=== PATIENT | male | born 1955 | race Two or more races ===

== ENCOUNTER 2021-09-27 14:53 | Emergency (ER) | payer MEDICARE, SELFPAY ==
--- NOTE | ~2021-09-27 | CT_ITS ---
EXAMINATION: CT ABDOMEN AND PELVIS WITHOUT CONTRAST CLINICAL INFORMATION: Abdominal pain COMPARISON: None TECHNIQUE: Multidetector volumetric imaging was performed from the superior aspect of the liver through the pubic symphysis. No oral or intravenous contrast. Sagittal and coronal reformatted images were obtained on the technologist's workstation. This CT examination was performed using dose optimization techniques as appropriate, variously including the following: *Automated exposure control *Adjustment of mA and/or kV according to patient size (this includes techniques or standardized protocols for targeted exams where dose is matched to indication/reason for exam; i.e. extremities or head) *Use of iterative reconstruction technique DLP: 957 mGy-cm FINDINGS: LUNG BASES: Bibasilar linear scarring versus disc atelectasis. No airspace consolidation or groundglass opacity or effusion. LIVER, GALLBLADDER, AND BILIARY TREE: The liver is normal in size, shape, and attenuation. No focal hepatic lesion or biliary ductal dilatation is present. The gallbladder has trace dependent high attenuation within the lumen likely gravel-like calculi. No gallbladder wall thickening or pericholecystic fluid. Common duct unremarkable. PANCREAS: Unremarkable. SPLEEN: Unremarkable. ADRENAL GLANDS: Unremarkable. KIDNEYS AND URETERS: No hydronephrosis, hydroureter, or perinephric stranding. No urinary tract calculi. Punctate intrarenal calcifications on left under 3 mm, likely renal vasculature. Right kidney has a 1.1 cm exophytic cyst interpolar region, water attenuation. No additional imaging required. Left kidney has a 1.7 cm exophytic upper pole cyst water attenuation and 1.2 cm cyst anterior lower pole, water attenuation. No additional imaging required. There is also a nonspecific high attenuation lesion lateral interpolar region 1.8 cm, 43HU. This may be further assessed nonemergent line with MR without and with gadolinium contrast. BLADDER: Unremarkable. GASTROINTESTINAL TRACT: There are focal inflammatory changes in mid splenic flexure in area of diverticula with mild induration and stranding in the mesentery, consistent with diverticulitis. No free air or proximal obstruction. No paracolic fluid collection or ascites. There is nonspecific circumferential thickening of the distal thoracic esophagus and esophagogastric junction. This could be related to esophagitis. Occult esophageal cancer may have similar appearance. This may be best correlated with direct visualization/endoscopy. ABDOMINAL WALL: Fat-containing umbilical hernia measuring approximately 5 x 5 x 4 cm. Small fat-containing bilateral inguinal hernias. LYMPH NODES: No bulky lymphadenopathy. VASCULAR: Unremarkable. PELVIC VISCERA: Plump seminal vesicles. Pelvic side wall soft tissues unremarkable. OSSEOUS STRUCTURES: Unremarkable. Results and follow up recommendations discussed with Dr. Shabazz at [address]/CT abdomen pelvis wo con IMPRESSION: 1. Diverticulitis splenic flexure. No proximal obstruction, ascites, or fluid collection. 2. Nonspecific thickening distal thoracic esophagus and esophagogastric junction. Differential considerations include esophagitis as well as occult esophageal cancer. This would be best correlated with direct visualization/endoscopy. 3. High attenuation lesion left kidney just under 2 cm (solid mass versus hemorrhagic cyst). Nonemergent MR abdomen without and with gadolinium contrast suggested for follow-up. 4. Probable gravel-like calculi dependent gallbladder. No gallbladder wall thickening or ductal dilatation or pericholecystic inflammatory changes.
[2021-09-27 15:01] VITALS: RESP 19; TEMP 36.8; BMI 39.5
--- NOTE | 2021-09-27 15:08 | ECG_ITS ---
Test Reason : ABNOMINAL PAIN Blood Pressure : / mmHG Vent. Rate : 076 BPM Atrial Rate : 076 BPM P-R Int : 132 ms QRS Dur : 104 ms QT Int : 398 ms P-R-T Axes : 049 004 040 degrees QTc Int : 447 ms Normal sinus rhythm Cannot rule out Inferior infarct , age undetermined Abnormal ECG No previous ECGs available Referred By: Generic ED Physician Electronically Signed By:Shankar Lopes
[2021-09-27 16:00] VITALS: BP 182/71; PULSE 98; RESP 16; O2SAT 100
[2021-09-27 16:29] LABS: MANUAL DIFF FLAG NO
[2021-09-27 16:32] LABS: Basophils Percent Auto 0.2 % (0-2); Eosinophils Absolute Auto 0.1 X10*3/uL (0.0-0.4); Eosinophils Percent Auto 0.4 % (0-4); Hematocrit 26.1 % (42.0-52.0); Hemoglobin 8.5 g/dl (14.0-18.0); Imm Gran Abs Auto 0.07 X10*3/uL (0.00-0.03); Imm Gran Pct Auto 0.5 % (0.0-0.4); Lymphocytes Absolute Auto 0.8 X10*3/uL (1.2-4.9); Lymphocytes Percent Auto 6.1 % (20-40); Mean Corpuscular HGB Conc 32.6 g/dl (31.0-36.0); Mean Corpuscular Hemoglobin 33.5 pg (27.0-33.0); Mean Corpuscular Volume 102.8 fL (80.0-98.0); Mean Platelet Volume 11.5 fL (9.4-12.4); Monocytes Percent Auto 7.4 % (2-11); Neutrophils Absolute Auto 11.1 x10*3/uL (2.0-8.3); Neutrophils Percent Auto 85.4 % (45-73); Platelet Count 176 X10*3/uL (160-400); Red Blood Count 2.54 X10*6/uL (4.60-5.80); Red Cell Distribution Width 13.8 % (11.0-16.0)
--- NOTE | 2021-09-27 16:35 | ED_ITS ---
HPI - Abdominal Pain General Chief Complaint: Abdominal Pain Stated Complaint: cat scan pcp referral Time Seen by Provider: 09/27/21 16:28 Source: patient Mode of arrival: ambulatory Limitations: no limitations History of Present Illness HPI narrative: Patient having left lower abdominal pain for last 2 days associa zelda with nausea no vomiting no fever no chills no blood in the stool no diarrhea no fever no chills no cough never had similar pain in the past been told that he had diverticulosis also patient has chronic renal disease planning for dialysis follow with chiropractic physician Related Data Previous Rx's Medication Instructions Recorded amoxicillin 875 mg-potassium 1 tab PO BID #20 tab 09/27/21 clavulanate 125 mg tablet (Augmentin) Allergies Allergy/AdvReac Type Severity Reaction Status Date / Time ibuprofen [From Motrin] AdvReac Itching Verified 09/27/21 15:06 Review of Systems Review of Systems Yes all other systems are reviewed and are negative Physical Exam Vital Signs: Vital Signs: Last Vital Signs Temp 98.5 F 09/27/21 17:57 Pulse 76 09/27/21 17:57 Resp 14 09/27/21 17:57 BP 149/74 H 09/27/21 17:57 Pulse Ox 100 09/27/21 17:57 BMI result Body Mass Index 39.5 Appearance: Alert. Oriented X3. No acute distress. Eyes: Pallor+ ENT: Pharynx normal. Oral Mucosa moist Neck: Normal inspection. Neck supple. CVS: Normal heart rate and rhythm. Pulses normal. Respiratory: No respiratory distress. Equal air entry bilateral, Abdomen: Soft and dependence of left lower quadrant no rebound tenderness or guarding, Bowel sounds are present, no mass palpable, no CVA tenderness Skin: Skin warm and dry. Normal skin color. Normal skin turgor. Extremities: No lower extremity edema. No calf tenderness Neuro: Oriented X 3. MDM - Abdominal Pain MDM Narrative Medical decision making narrative: Patient with uncomplicated diverticulitis with known CKD been followed by chiropractic physician plan for dialysis on was given a dose of Zosyn in the ER will discharge patient home on Augmentin Lab Data Attestation: I reviewed the patient's lab results. Result diagrams: 09/27/21 16:25 09/27/21 16:25 Labs: Lab Results 09/27/21 09/27/21 09/27/21 Range/Units 16:25 16:25 16:25 WBC 13.0 H (4.8-10.8) X10*3/uL RBC 2.54 L (4.60-5.80) X10*6/uL Hgb 8.5 L (14.0-18.0) g/dl Hct 26.1 L (42.0-52.0) % MCV 102.8 H (80.0-98.0) fL MCH 33.5 H (27.0-33.0) pg MCHC 32.6 (31.0-36.0) g/dl RDW 13.8 (11.0-16.0) % Plt Count 176 (160-400) X10*3/uL MPV 11.5 (9.4-12.4) fL Immature Gran % (Auto) 0.5 H (0.0-0.4) % Neut % (Auto) 85.4 H (45-73) % Lymph % (Auto) 6.1 L (20-40) % Tyler % (Auto) 7.4 (2-11) % Eos % (Auto) 0.4 (0-4) % Baso % (Auto) 0.2 (0-2) % Lymph # (Auto) 0.8 L (1.2-4.9) X10*3/uL Tyler # (Auto) 1.0 (0.1-1.2) X10*3/uL Eos # (Auto) 0.1 (0.0-0.4) X10*3/uL Baso # (Auto) 0.0 (0.0-0.2) X10*3/uL Abs Immat Gran (auto) 0.07 H (0.00-0.03) X10*3/uL Absolute Neuts (auto) 11.1 H (2.0-8.3) x10*3/uL Absolute Nucleated RBC 0.000 (0.0-0.012) X10*3/uL Nucleated RBC % (auto) 0.0 (0.0-0.2) /100WBC Sodium 141 (135-145) mmol/L Potassium 4.7 (3.3-5.1) mmol/L Chloride 109 H (96-108) mmol/L Carbon Dioxide 18 L (22-29) mmol/L Anion Gap 19 (12-20) BUN 76 H (9-16) mg/dL Creatinine 7.61 H* (0.5-1.4) mg/dL Estim Creat Clear Calc 12.4 Estimated GFR 7 Random Glucose 62 (60-115) mg/dL Calcium 8.8 (8.4-10.2) mg/dL COVID-19 (MARYJANE) Negative (Negative) COVID-19 Clin Com See Note Discharge Plan Discharge Clinical Impression: Diverticulitis Patient Disposition: Home, Self-Care Instructions: Diverticulitis (ED) Additional Instructions: Drink plenty of fluids Clear liquids advance as tolerated Antibiotic as prescribed Report to the ER/PCP if increased abdominal pain fever/vomiting/blood in stool Prescriptions: New amoxicillin-pot clavulanate [Augmentin] 875-125 mg tablet 1 tab PO BID Qty: 20 RF: 0 PMFSH Past Medical History Medical History Chronic kidney disease (CKD) Diabetes Hypertension Sleep apnea Social History Social History Advance Directives: Yes Advance Directives Information Provided: No Advance Directives on File: No
[2021-09-27 16:46] LABS: Anion Gap 19 (12-20); Blood Urea Nitrogen 76 mg/dL (9-16); Calcium 8.8 mg/dL (8.4-10.2); Carbon Dioxide 18 mmol/L (22-29); Chloride 109 mmol/L (96-108); Creatinine Clr Calc Pharmacy 12.4; Estimated Glomerular Filt Rate 7; Glucose Random 62 mg/dL (60-115); Potassium 4.7 mmol/L (3.3-5.1); Sodium 141 mmol/L (135-145)
[2021-09-27 16:48] LABS: COVID-19 Test Negative (Negative)
[2021-09-27] MEDS: Piperacillin Sodium/Tazobactam 2.25 GM in 0.9 % Sodium Chloride 50 ML IV (17:20)
[2021-09-27] MEDS: 0.9 % Sodium Chloride 1,000 ML 999 ML IV (17:20)
[2021-09-27 17:57] VITALS: BP 149/74; PULSE 76; RESP 14; TEMP 36.9; O2SAT 100
== END 2021-09-27 18:55 | disposition home or self-care (01) ==
PROVIDERS: Emergency Provider Internal Medicine; PCP Internal Medicine
DX: K57.92 Diverticulitis of intestine, part unspecified, without perforation or abscess without bleeding (principal); R10.32 Left lower quadrant pain; Z20.822 Contact with and (suspected) exposure to COVID-19; R11.0 Nausea; E11.22 Type 2 diabetes mellitus with diabetic chronic kidney disease; I12.9 Hypertensive chronic kidney disease with stage 1 through stage 4 chronic kidney disease, or unspecified chronic kidney disease; N18.9 Chronic kidney disease, unspecified
CPT/HCPCS: 74176; 80048; 85025; 87635; 93005; 96361; 96374; 99284; J2543

== ENCOUNTER 2022-06-23 05:42 | Day surgery (SDC) | payer MEDICARE, SELFPAY ==
[2022-06-16 12:07] VITALS: BP 117/66; PULSE 77; RESP 20; O2SAT 97; BMI 34.2
--- NOTE | 2022-06-16 12:20 | HO.ANESPROP2 ---
Documented by User: Keri Jason NP 06/16/22 13:06 HPI - Anesthesia Eval Consult details Narrative: 67yo M for Left AV Fistula Creation ESRD with HD on MWF Cardiology visit 04/2022 - new rx for isosorbide for med management of CAD, otherwise stable [facility] Past Medical History Medical History Anemia Arthritis CAD (coronary artery disease) Carotid stenosis Cervical herniated disc Chronic kidney disease (CKD) CVA (cerebral vascular accident) Depression Diabetes Difficulty swallowing Elevated cholesterol Gout Hemodialysis patient Hypertension Myocardial infarction Peripheral neuropathy Renal failure Sleep apnea Thoracic aortic aneurysm Venous insufficiency Family History Family history of problems with anesthesia: No Surgical History Surgical History H/O colonoscopy History of esophagogastroduodenoscopy (EGD) Hx of coronary angioplasty History of Problems with Anesthesia: No Social History Social History Are you a primary home care aide to a significant other at home: No Do you presently have visiting nurse or other home services: No Patient Tobacco Use Status: Former Tobacco user Quit Date: Tobacco use type: Cigarette Use of substances other than those prescribed or required for medical reasons: No Have you been hit, kicked, punched, or otherwise hurt by someone within the past year? If so, by whom?: No Are you DNR?: No Advance Directives: No Advance Directives Information Provided: Yes Advance Directives on File: No Recently lost weight without trying: Yes How much weight loss: 34pounds or more Eating poorly because of decreased appetite: No Nutrition screen score: 6 Nutrition Risks: No Nutritional Risk and Difficulty swallowing Narrative Narrative: No recent illness No chest pain. SOB chronic and at baseline Meds Allergies Allergy/AdvReac Type Severity Reaction Status Date / Time ibuprofen [From Motrin] Allergy Intermediate Itching Verified 06/16/22 12:02 Home Medications Medication Instructions Recorded Confirmed Last Taken Type allopurinol 100 mg tablet 2 tab PO DAILY 06/15/22 06/15/22 Unknown History aspirin 81 mg tablet,delayed 81 mg PO DAILY 06/15/22 06/15/22 06/20/22 History release atorvastatin 80 mg tablet 1 tab PO DAILY 06/15/22 06/15/22 Unknown History carvedilol 12.5 mg tablet 12.5 mg PO BID 06/15/22 06/15/22 06/23/22 History cholecalciferol (vitamin D3) 50 50 mcg PO DAILY 06/15/22 06/15/22 Unknown History mcg (2,000 unit) capsule (Vitamin D3) cyanocobalamin (vitamin B-12) 1,000 mcg PO DAILY 06/15/22 06/15/22 Unknown History 1,000 mcg tablet (Vitamin B-12) fluticasone propionate 50 1 spray intranasal DAILY 06/15/22 06/15/22 Unknown History mcg/actuation nasal spray,suspension furosemide 80 mg tablet 80 mg PO DAILY 06/15/22 06/15/22 Unknown History gabapentin 100 mg capsule 1 cap PO DAILY PRN nerve pain 06/15/22 06/15/22 Unknown History hydralazine 25 mg tablet 25 mg PO TID 06/15/22 06/15/22 Unknown History isosorbide mononitrate 30 mg 30 mg PO DAILY 06/15/22 06/15/22 Unknown History tablet,extended release 24 hr losartan 50 mg tablet 50 mg PO DAILY 06/15/22 06/15/22 Unknown History meclizine 25 mg tablet 1 tab PO BID PRN Vertigo 06/15/22 06/15/22 Unknown History melatonin 10 mg tablet 10 mg PO BEDTIME 06/15/22 06/15/22 Unknown History omega-3 fatty acids-fish oil 684 1 cap PO DAILY 06/15/22 06/15/22 06/22/22 History mg-1,200 mg capsule,delayed release omeprazole 20 mg tablet,delayed 20 mg PO BID 06/15/22 06/16/22 06/23/22 History release folic acid 1 mg tablet 1 tab PO DAILY 06/16/22 06/16/22 Unknown History vitamin B complex and vitamin C 1 cap PO DAILY 06/16/22 06/16/22 Unknown History no.20-folic acid 1 mg capsule (Renal Caps) Exam Exam Date and Time: June 16, 2022 1220 Height,Weight and Vital Signs: Height 5 ft 9 in Weight 105 kg Last Vital Signs Pulse 77 06/16/22 12:07 Resp 20 06/16/22 12:07 BP 117/66 06/16/22 12:07 Pulse Ox 97 06/16/22 12:07 O2 Del Method 10/06/22 12:07 Pertinent Lab Results Pertinent Lab Results: Labs at outside facility 05/18/22 Lytes WNL CBC with low H&H Will repeat DOS Narrative Narrative: EKG 03/2022 NSR @ 82 Possible LAE Inferior infarct (old) ECHO 02/2022 LV size is at the upper normal limit. Mild concentric LVH. Inferior wall hypokinetic. Nml LV systolic function. LV EF 55-60%. Grade 2 abnormal LV diastolic function. Normal RV size and function. Severely dilated LA Mild aortic stenosis. Trace aortic insufficiency PASP mildly elevated Sinuses of Valsava (4.2cm), ascending (4.3cm) dilation Nuc Stress 04/2022 transmural infarct in basal to mid inferior wall and basal inferior septum with mild hermelindo-infarct ischemia, nml LV size and systolic function with an EF of 60%, inferior wall is hypokinetic Airway Mallampati Class: II TM Dist: >3cm Neck ROM: Full Denture: Upper Partial: Lower Loose/Missing/Broken Teeth: Yes Heart: RRR +Murmur (mid by ECHO in February 2022) Lungs: CTAB Assessment and Plan Assessment Anesthesia Assessment: Chart Reviewed Final Anesthetic Review Family History of Problems with Anesthesia: No History of Problems with Anesthesia: No Documented by User: Payton Pizano MD 06/23/22 08:35 [facility] Past Medical History Medical History Anemia Arthritis CAD (coronary artery disease) Carotid stenosis Cervical herniated disc Chronic kidney disease (CKD) CVA (cerebral vascular accident) Depression Diabetes Difficulty swallowing Elevated cholesterol Gout Hemodialysis patient Hypertension Myocardial infarction Peripheral neuropathy Renal failure Sleep apnea Thoracic aortic aneurysm Venous insufficiency Surgical History Surgical History H/O colonoscopy History of esophagogastroduodenoscopy (EGD) Hx of coronary angioplasty Social History Social History Are you a primary home care aide to a significant other at home: No Do you presently have visiting nurse or other home services: No Patient Tobacco Use Status: Former Tobacco user Quit Date: Tobacco use type: Cigarette Use of substances other than those prescribed or required for medical reasons: No Have you been hit, kicked, punched, or otherwise hurt by someone within the past year? If so, by whom?: No Are you DNR?: No Advance Directives: No Advance Directives Information Provided: Yes Advance Directives on File: No Recently lost weight without trying: Yes How much weight loss: 34pounds or more Eating poorly because of decreased appetite: No Nutrition screen score: 6 Nutrition Risks: No Nutritional Risk and Difficulty swallowing Meds Allergies Allergy/AdvReac Type Severity Reaction Status Date / Time ibuprofen [From Motrin] Allergy Intermediate Itching Verified 06/16/22 12:02 Home Medications Medication Instructions Recorded Confirmed Last Taken Type allopurinol 100 mg tablet 2 tab PO DAILY 06/15/22 06/15/22 Unknown History aspirin 81 mg tablet,delayed 81 mg PO DAILY 06/15/22 06/15/22 06/20/22 History release atorvastatin 80 mg tablet 1 tab PO DAILY 06/15/22 06/15/22 Unknown History carvedilol 12.5 mg tablet 12.5 mg PO BID 06/15/22 06/15/22 06/23/22 History cholecalciferol (vitamin D3) 50 50 mcg PO DAILY 06/15/22 06/15/22 Unknown History mcg (2,000 unit) capsule (Vitamin D3) cyanocobalamin (vitamin B-12) 1,000 mcg PO DAILY 06/15/22 06/15/22 Unknown History 1,000 mcg tablet (Vitamin B-12) fluticasone propionate 50 1 spray intranasal DAILY 06/15/22 06/15/22 Unknown History mcg/actuation nasal spray,suspension furosemide 80 mg tablet 80 mg PO DAILY 06/15/22 06/15/22 Unknown History gabapentin 100 mg capsule 1 cap PO DAILY PRN nerve pain 06/15/22 06/15/22 Unknown History hydralazine 25 mg tablet 25 mg PO TID 06/15/22 06/15/22 Unknown History isosorbide mononitrate 30 mg 30 mg PO DAILY 06/15/22 06/15/22 Unknown History tablet,extended release 24 hr losartan 50 mg tablet 50 mg PO DAILY 06/15/22 06/15/22 Unknown History meclizine 25 mg tablet 1 tab PO BID PRN Vertigo 06/15/22 06/15/22 Unknown History melatonin 10 mg tablet 10 mg PO BEDTIME 06/15/22 06/15/22 Unknown History omega-3 fatty acids-fish oil 684 1 cap PO DAILY 06/15/22 06/15/22 06/22/22 History mg-1,200 mg capsule,delayed release omeprazole 20 mg tablet,delayed 20 mg PO BID 06/15/22 06/16/22 06/23/22 History release folic acid 1 mg tablet 1 tab PO DAILY 06/16/22 06/16/22 Unknown History vitamin B complex and vitamin C 1 cap PO DAILY 06/16/22 06/16/22 Unknown History no.20-folic acid 1 mg capsule (Renal Caps) Exam Airway Mallampati Class: III (Johnson) Assessment and Plan Assessment Anesthesia Assessment: Anesthesia Plan Discussed Final Anesthetic Review NPO: Yes ASA Class: IV Final Preanesthetic Review: Meds/Allgs Chart Reviewed, Consent Obtained/Reviewed and Anes Risks/Benef Reviewed Patient Risk: High Procedure Risk: Low Anesthetic Plan Anesthetic Plan: MAC: Disposition: Standard PACU
[2022-06-23 06:28] LABS: Glucose, Whole Blood 98 mg/dL (60-115)
[2022-06-23 06:29] VITALS: BP 148/77; PULSE 70; RESP 18; TEMP 36.4; O2SAT 97
[2022-06-23 06:29] LABS: Hematocrit 22.8 % (42.0-52.0); Hemoglobin 7.4 g/dl (14.0-18.0); Mean Corpuscular HGB Conc 32.5 g/dl (31.0-36.0); Mean Corpuscular Hemoglobin 33.2 pg (27.0-33.0); Mean Corpuscular Volume 102.2 fL (80.0-98.0); Mean Platelet Volume 9.6 fL (9.4-12.4); Platelet Count 247 X10*3/uL (160-400); Red Blood Count 2.23 X10*6/uL (4.60-5.80); Red Cell Distribution Width 14.2 % (11.0-16.0); White Blood Count 7.5 X10*3/uL (4.8-10.8)
[2022-06-23] MEDS: 0.9 % Sodium Chloride 1,000 ML 100 ML IVCONT (06:36)
[2022-06-23 06:44] LABS: Anion Gap 19 (12-20); Carbon Dioxide 25 mmol/L (22-29); Chloride 97 mmol/L (96-108); Potassium 4.4 mmol/L (3.3-5.1); Sodium 137 mmol/L (135-145)
[2022-06-23 09:50] VITALS: BP 133/72; PULSE 63; RESP 20; TEMP 37.1; O2SAT 99
--- NOTE | 2022-06-23 09:50 | P.OP_ITS ---
Operative Note Operative Note Date of Service: 06/23/22 Narrative: Pre-op Dx: ESRD Post-op Dx: ESRD Operation: Left arm radial artery to antecubital vein AV fistula Surgeon: Grace Yao MD Anesthesia: MAC, local Procedure: The patient was placed on the OR table in a supine position. Lower extremity compression devices were placed. The anesthesiologist administered the pre- operative antibiotic. An US of the veins was performed on the left arm. After successful induction of MAC anesthesia, the left arm was prepped and draped in a sterile fashion. A surgical timeout took place. Local anesthetic was used. An incision was made below the crease of the elbow on the forearm. The Bovie electrocautery was used to dissect through the subcutaneous tissue. The antecubital vein, cephalic vein and basilic vein were isolated and skeletonized. Small branches were ligated and divided with 4-0 silk ties. The cephalic vein and the basilic vein were distended using hep-saline and dilators. The brachial artery bifurcated above the elbow. The radial artery and the ulnar artery were identified, dissected and skeletonized. There was no intimal calcification of the radial artery but there was a fair amount on the ulnar artery. Therefore I chose the radial artery for the fistula creation. Small branches were ligated and divided using 4-0 silk ties. Proximal and distal control was achieved. An arteriotomy was made and the antecubital vein was directly sewn to the radial artery using a 6-0 Prolene suture in a running fashion. The clamps were released and a soft thrill was noted. Hemostasis was maintained. The incision was closed in layers. Surgical glue was applied. The hand was well perfused. The patient tolerated the procedure well. All instrument, sponge and needle counts were correct at the end of the case. Findings: high bifurcation of the brachial artery, above the elbow. The radial artery had no calcification.
[2022-06-23 09:56] LABS: Glucose, Whole Blood 79 mg/dL (60-115)
[2022-06-23 10:05] VITALS: BP 144/80; PULSE 51; RESP 18; O2SAT 96
[2022-06-23] MEDS: Acetaminophen 325 MG TABLET 650 MG PO (10:19)
[2022-06-23 10:25] VITALS: BP 138/85; PULSE 59; RESP 18; TEMP 36.5; O2SAT 96
== END 2022-06-23 11:00 | disposition home or self-care (01) ==
PROVIDERS: Nurse Practitioner; PCP Internal Medicine; Visit Provider Transplant Surgery
PROC: (CPT 36821; principal; 2022-06-23 07:30)
DX: E11.22 Type 2 diabetes mellitus with diabetic chronic kidney disease (principal); I12.0 Hypertensive chronic kidney disease with stage 5 chronic kidney disease or end stage renal disease; N18.6 End stage renal disease; Z99.2 Dependence on renal dialysis; I25.10 Atherosclerotic heart disease of native coronary artery without angina pectoris; Z98.61 Coronary angioplasty status; Z79.51 Long term (current) use of inhaled steroids; Z79.82 Long term (current) use of aspirin; Z79.84 Long term (current) use of oral hypoglycemic drugs; Z88.8 Allergy status to other drugs, medicaments and biological substances; Z87.891 Personal history of nicotine dependence
CPT/HCPCS: 36821; 36415; 80051; 82947; 85027; J0690; J2250; J3010

== ENCOUNTER 2024-01-14 01:48 | Inpatient (IN) | payer MEDICARE, SELFPAY ==
[2024-01-14] VITALS (12 sets, daily range): BP systolic 124–190; BP diastolic 70–99; PULSE 83–138; RESP 20–45; TEMP 36.4–37.1; O2SAT 83–98; BMI 40.9
--- NOTE | 2024-01-14 | ECG_ITS ---
Test Reason : REPECT Blood Pressure : / mmHG Vent. Rate : 099 BPM Atrial Rate : 099 BPM P-R Int : 194 ms QRS Dur : 108 ms QT Int : 376 ms P-R-T Axes : 051 -11 068 degrees QTc Int : 482 ms Normal sinus rhythm Inferior infarct , age undetermined Abnormal ECG When compared with ECG of 14-JAN-2024 01:55, slower ventricular rate ST less depressed in Lateral leads T wave inversion no longer evident in Lateral leads Referred By: Keon Rubin Electronically Signed By:AUDRA JUAREZ
--- NOTE | ~2024-01-14 | XR_ITS ---
EXAMINATION: XR CHEST CLINICAL INFORMATION: CHF COMPARISON: None available. TECHNIQUE: Frontal view of the chest was obtained. FINDINGS: Left IJ central line tip in the region of the mid SVC. Lung volumes are symmetric. There is diffuse prominence of the interstitium suspicious for interstitial edema. Small pleural effusions are present with adjacent hazy bibasilar opacities which may represent atelectasis. No evidence of pneumothorax. The cardiomediastinal contour is unremarkable. No acute osseous findings are seen. XR/XR chest 1V IMPRESSION: Diffuse interstitial prominence suspicious for interstitial edema. Small pleural effusions with adjacent bibasilar opacities which may represent atelectasis.
--- NOTE | 2024-01-14 01:55 | ECG_ITS ---
Test Reason : SOB Blood Pressure : / mmHG Vent. Rate : 143 BPM Atrial Rate : 143 BPM P-R Int : 144 ms QRS Dur : 108 ms QT Int : 278 ms P-R-T Axes : 044 -16 114 degrees QTc Int : 429 ms Sinus tachycardia Possible Left atrial enlargement Incomplete left bundle branch block Nonspecific ST and T wave abnormality Abnormal ECG When compared with ECG of 27-SEP-2021 16:13, Vent. rate has increased BY 67 BPM Referred By: Grupo Caba Electronically Signed By:AUDRA JUAREZ
[2024-01-14] MEDS: Furosemide 100 MG/10 ML VIAL IVPUSH (02:01)
[2024-01-14] MEDS: Nitroglycerin 2 % Oint 1 GM Packet 0.5 INCH TRANSDERMA (02:02)
[2024-01-14 02:14] LABS: MANUAL DIFF FLAG NO
[2024-01-14 02:15] LABS: Basophils Absolute Auto 0.1 X10*3/uL (0.0-0.2); Basophils Percent Auto 0.4 % (0-2); Eosinophils Absolute Auto 0.2 X10*3/uL (0.0-0.4); Eosinophils Percent Auto 0.7 % (0-4); Hematocrit 29.5 % (42.0-52.0); Hemoglobin 9.6 g/dl (14.0-18.0); Imm Gran Abs Auto 0.38 X10*3/uL (0.00-0.03); Imm Gran Pct Auto 1.7 % (0.0-0.4); Lymphocytes Absolute Auto 2.4 X10*3/uL (1.2-4.9); Lymphocytes Percent Auto 10.7 % (20-40); Mean Corpuscular HGB Conc 32.5 g/dl (31.0-36.0); Mean Corpuscular Hemoglobin 34.9 pg (27.0-33.0); Mean Corpuscular Volume 107.3 fL (80.0-98.0); Monocytes Absolute Auto 1.4 X10*3/uL (0.1-1.2); Neutrophils Absolute Auto 18.2 x10*3/uL (2.0-8.3); Neutrophils Percent Auto 80.5 % (45-73); Platelet Count 331 X10*3/uL (160-400); Red Blood Count 2.75 X10*6/uL (4.60-5.80); Red Cell Distribution Width 14.9 % (11.0-16.0); White Blood Count 22.6 X10*3/uL (4.8-10.8)
[2024-01-14 02:20] LABS: Prothrombin Time 12.6 SEC (11.1-13.3)
--- NOTE | 2024-01-14 02:22 | PC.NURSE ---
pt placed on bipap. settings are as follows 18/8 and 35%. RR33. SPO2 95%.
[2024-01-14 02:23] LABS: Partial Thromboplastin Time 25.3 SEC (26.0-36.8)
[2024-01-14 02:23] LABS: VBG Base Excess -0.2 mmol/L; VBG HCO3 24 mmol/L (22-26); VBG pCO2 40 mmHg; VBG pH 7.39 (7.32-7.43); VBG pO2 168 mmHg
[2024-01-14 02:33] LABS: Venous Blood Gas Refer to POC result
[2024-01-14 02:39] LABS: Alanine Aminotransferase 14 U/L (0-40); Alkaline Phosphatase 70 U/L (39-117); Anion Gap 25 (12-20); Aspartate Amino Transferase 19 U/L (5-37); Bilirubin Total 0.6 mg/dL (0.0-1.0); Blood Urea Nitrogen 46 mg/dL (9-16); Calcium 9.5 mg/dL (8.4-10.2); Carbon Dioxide 21 mmol/L (22-29); Chloride 93 mmol/L (96-108); Creatinine Clr Calc Pharmacy 10.1; Estimated Glomerular Filt Rate 6; Glucose Random 324 mg/dL (60-115); Potassium 4.1 mmol/L (3.3-5.1); Sodium 135 mmol/L (135-145); Total Protein 7.2 g/dL (6.5-8.0)
[2024-01-14 02:44] LABS: Troponin-I High Sensitivity 191.3 ng/L (<3.5-35.0)
--- NOTE | 2024-01-14 02:46 | ED_ITS ---
HPI - SOB/Dyspnea General Chief Complaint: Dyspnea Stated Complaint: Diff breathing Time Seen by Provider: 01/14/24 01:54 Source: patient Mode of arrival: ambulatory Limitations: no limitations History of Present Illness HPI Narrative: Patient history of hypertension on hemodialysis last dialysis was yesterday history of sleep apnea on CPAP apparently was watching hockey game started feeling short of breath put on CPAP himself was saturating 80% when EMS arrived was given Solu-Medrol DuoNeb and epinephrine patient does make urine denies any chest pain any fever or chills patient was placed on BiPAP on arrival Related Data Home Medications ?Medication ?Instructions ?Recorded ?Confirmed allopurinol 100 mg tablet 2 tab PO DAILY 06/15/22 06/15/22 aspirin 81 mg tablet,delayed 81 mg PO DAILY 06/15/22 06/15/22 release atorvastatin 80 mg tablet 1 tab PO DAILY 06/15/22 06/15/22 carvedilol 12.5 mg tablet 12.5 mg PO BID 06/15/22 06/15/22 cholecalciferol (vitamin D3) 50 50 mcg PO DAILY 06/15/22 06/15/22 mcg (2,000 unit) capsule (Vitamin D3) cyanocobalamin (vitamin B-12) 1,000 mcg PO DAILY 06/15/22 06/15/22 1,000 mcg tablet (Vitamin B-12) fluticasone propionate 50 1 spray intranasal DAILY 06/15/22 06/15/22 mcg/actuation nasal spray,suspension furosemide 80 mg tablet 80 mg PO DAILY 06/15/22 06/15/22 gabapentin 100 mg capsule 1 cap PO DAILY PRN nerve pain 06/15/22 06/15/22 hydralazine 25 mg tablet 25 mg PO TID 06/15/22 06/15/22 isosorbide mononitrate 30 mg 30 mg PO DAILY 06/15/22 06/15/22 tablet,extended release 24 hr losartan 50 mg tablet 50 mg PO DAILY 06/15/22 06/15/22 meclizine 25 mg tablet 1 tab PO BID PRN Vertigo 06/15/22 06/15/22 melatonin 10 mg tablet 10 mg PO BEDTIME 06/15/22 06/15/22 omega-3 fatty acids-fish oil 684 1 cap PO DAILY 06/15/22 06/15/22 mg-1,200 mg capsule,delayed release omeprazole 20 mg tablet,delayed 20 mg PO BID 06/15/22 06/16/22 release folic acid 1 mg tablet 1 tab PO DAILY 06/16/22 06/16/22 vitamin B complex and vitamin C 1 cap PO DAILY 06/16/22 06/16/22 no.20-folic acid 1 mg capsule (Renal Caps) Previous Rx's ?Medication ?Instructions ?Recorded amoxicillin 875 mg-potassium 1 tab PO BID #20 tabs 09/27/21 clavulanate 125 mg tablet (Augmentin) Allergies Allergy/AdvReac Type Severity Reaction Status Date / Time ibuprofen [From Motrin] Allergy Intermediate Itching Verified 01/14/24 02:09 Review of Systems 2 Review of Systems: Yes all other systems are reviewed and are negative [facility] Past Medical History Medical History Difficulty swallowing Venous insufficiency CVA (cerebral vascular accident) Myocardial infarction CAD (coronary artery disease) Thoracic aortic aneurysm Cervical herniated disc Hemodialysis patient Renal failure Carotid stenosis Depression Elevated cholesterol Peripheral neuropathy Gout Arthritis Anemia Hypertension Diabetes Chronic kidney disease (CKD) Sleep apnea Surgical History History of esophagogastroduodenoscopy (EGD) H/O colonoscopy Hx of coronary angioplasty Social History Social History Are you a primary day care home provider to a significant other at home: No Do you presently have visiting nurse or other home services: No Patient Tobacco Use Status: Former Tobacco user Quit Date: Tobacco use type: Cigarette Smoked in Last 30 Days: No Use of substances other than those prescribed or required for medical reasons: No Advance Directives: No Advance Directives Information Provided: No Physical Exam 2 Vital Signs: Vital Signs: Last Vital Signs Temp 98.8 F 01/14/24 02:58 Pulse 108 H 01/14/24 04:03 Resp 24 H 01/14/24 04:03 BP 124/70 01/14/24 04:03 Pulse Ox 95 01/14/24 04:03 O2 Del Method Nasal Cannula 01/14/24 04:03 O2 Flow Rate 3 01/14/24 04:03 BMI result Body Mass Index 40.9 Appearance: Alert. Oriented X3. In severe respiratory distress Eyes: PERRLA, No Nystagmus ENT: Pharynx normal. Oral Mucosa moist Neck: Normal inspection. Neck supple. CVS: Normal heart rate and rhythm. Pulses normal. Respiratory: No respiratory distress. Equal air entry bilateral, bilateral crackles Abdomen: Soft and nontender. Bowel sounds are present, no mass palpable, no CVA tenderness Skin: Skin warm and dry. Normal skin color. Normal skin turgor. Extremities: 1+ lower extremity edema. No calf tenderness Neuro: Oriented X 3. No motor deficit. No sensory deficit.No cerebellar signs , cranial nerves II-XII intact Medications Administered Discontinued Medications Generic Name Dose Route Start Last Admin Trade Name Freq PRN Reason Stop Dose Admin Bumetanide 2 mg 01/14/24 03:12 01/14/24 03:15 Bumetanide 1 Mg/4 Ml Vial IVPUSH 01/14/24 03:13 2 mg ONCE ONE Administration Protocol Furosemide 100 mg 01/14/24 01:54 01/14/24 02:01 Furosemide 100 Mg/10 Ml Vial IVPUSH 01/14/24 01:55 100 mg ONCE ONE Administration Protocol Ceftriaxone Sodium 1 gm/ 50 mls @ 100 mls/hr 01/14/24 02:39 01/14/24 02:57 Sodium Chloride IV 01/14/24 03:08 100 mls/hr ONCE ONE Administration Nitroglycerin 0.5 inch 01/14/24 01:58 01/14/24 02:02 Nitroglycerin 2 % Oint 1 Gm Packet TRANSDERMA 01/14/24 01:59 0.5 inch ONCE ONE Administration Medical Decision Making Medical Decision Making [facility] Narrative: Patient has acute pulmonary edema secondary to fluid overload with history of end-stage renal disease on dialysis responded to short term BiPAP and IV Lasix 100 mg and Bumex 2 mg patient was urinating prior to arrival has not urinated in the ER yet but Feels comfortable case discussed with nephrology will do dialysis in the a.m. will admit patient to hospitalist Differential Diagnosis Differential Diagnoses: The differential diagnosis associated with the presentation includes Fluid overload/pneumonia/ACS Admission/Observation Consideration of admission/observation: Escalation of care including admission/observation considered Consult Healthcare Provider Management of the patient was discussed with: Hospitalist Lab Data [facility] Lab Attestation statement: I reviewed the patient's lab results. 01/14/24 02:10 01/14/24 02:10 Labs: Lab Results 01/14/24 01/14/24 01/14/24 Range/Units 02:10 02:16 02:17 WBC 22.6 H (4.8-10.8) X10*3/uL RBC 2.75 L D (4.60-5.80) X10*6/uL Hgb 9.6 L D (14.0-18.0) g/dl Hct 29.5 L D (42.0-52.0) % MCV 107.3 H (80.0-98.0) fL MCH 34.9 H (27.0-33.0) pg MCHC 32.5 (31.0-36.0) g/dl RDW 14.9 (11.0-16.0) % Plt Count 331 D (160-400) X10*3/uL MPV 10.0 (9.4-12.4) fL Immature Gran % (Auto) 1.7 H (0.0-0.4) % Neut % (Auto) 80.5 H (45-73) % Lymph % (Auto) 10.7 L (20-40) % [place] % (Auto) 6.0 (2-11) % Eos % (Auto) 0.7 (0-4) % Baso % (Auto) 0.4 (0-2) % Lymph # (Auto) 2.4 (1.2-4.9) X10*3/uL [place] # (Auto) 1.4 H (0.1-1.2) X10*3/uL Eos # (Auto) 0.2 (0.0-0.4) X10*3/uL Baso # (Auto) 0.1 (0.0-0.2) X10*3/uL Abs Immat Gran (auto) 0.38 H (0.00-0.03) X10*3/uL Absolute Neuts (auto) 18.2 H (2.0-8.3) x10*3/uL Absolute Nucleated RBC 0.000 (0.0-0.012) X10*3/uL Nucleated RBC % (auto) 0.0 (0.0-0.2) /100WBC PT 12.6 (11.1-13.3) SEC INR 1.0 (0.9-1.1) APTT 25.3 L (26.0-36.8) SEC VBG pH 7.39 (7.32-7.43) VBG pCO2 40 mmHg VBG pO2 168 mmHg VBG HCO3 24 (22-26) mmol/L VBG O2 Saturation 100.0 % VBG Base Excess -0.2 mmol/L Sodium 135 (135-145) mmol/L Potassium 4.1 (3.3-5.1) mmol/L Chloride 93 L (96-108) mmol/L Carbon Dioxide 21 L (22-29) mmol/L Anion Gap 25 H (12-20) BUN 46 H (9-16) mg/dL Creatinine 9.29 H* (0.5-1.4) mg/dL Estim Creat Clear Calc 10.1 Estimated GFR 6 Random Glucose 324 H (60-115) mg/dL Lactic Acid (0.5-2.0) mmol/L Calcium 9.5 D (8.4-10.2) mg/dL Total Bilirubin 0.6 (0.0-1.0) mg/dL AST 19 (5-37) U/L ALT 14 (0-40) U/L Alkaline Phosphatase 70 (39-117) U/L Troponin I High Sens 191.3 H* (<3.5-35.0) ng/L B-Natriuretic Peptide 2710 H (<100) pg/mL Total Protein 7.2 (6.5-8.0) g/dL Albumin 4.0 (3.5-5.0) g/dL Influenza Type A (PCR) NEGATIVE (Negative) Influenza Type B (PCR) NEGATIVE (Negative) RSV RNA Qual (PCR) NEGATIVE (Negative) SARS-CoV-2 RNA (RT-PCR) NEGATIVE (Negative) 01/14/24 Range/Units 02:45 WBC (4.8-10.8) X10*3/uL RBC (4.60-5.80) X10*6/uL Hgb (14.0-18.0) g/dl Hct (42.0-52.0) % MCV (80.0-98.0) fL MCH (27.0-33.0) pg MCHC (31.0-36.0) g/dl RDW (11.0-16.0) % Plt Count (160-400) X10*3/uL MPV (9.4-12.4) fL Immature Gran % (Auto) (0.0-0.4) % Neut % (Auto) (45-73) % Lymph % (Auto) (20-40) % [place] % (Auto) (2-11) % Eos % (Auto) (0-4) % Baso % (Auto) (0-2) % Lymph # (Auto) (1.2-4.9) X10*3/uL [place] # (Auto) (0.1-1.2) X10*3/uL Eos # (Auto) (0.0-0.4) X10*3/uL Baso # (Auto) (0.0-0.2) X10*3/uL Abs Immat Gran (auto) (0.00-0.03) X10*3/uL Absolute Neuts (auto) (2.0-8.3) x10*3/uL Absolute Nucleated RBC (0.0-0.012) X10*3/uL Nucleated RBC % (auto) (0.0-0.2) /100WBC PT (11.1-13.3) SEC INR (0.9-1.1) APTT (26.0-36.8) SEC VBG pH (7.32-7.43) VBG pCO2 mmHg VBG pO2 mmHg VBG HCO3 (22-26) mmol/L VBG O2 Saturation % VBG Base Excess mmol/L Sodium (135-145) mmol/L Potassium (3.3-5.1) mmol/L Chloride (96-108) mmol/L Carbon Dioxide (22-29) mmol/L Anion Gap (12-20) BUN (9-16) mg/dL Creatinine (0.5-1.4) mg/dL Estim Creat Clear Calc Estimated GFR Random Glucose (60-115) mg/dL Lactic Acid 4.0 H* (0.5-2.0) mmol/L Calcium (8.4-10.2) mg/dL Total Bilirubin (0.0-1.0) mg/dL AST (5-37) U/L ALT (0-40) U/L Alkaline Phosphatase (39-117) U/L Troponin I High Sens (<3.5-35.0) ng/L B-Natriuretic Peptide (<100) pg/mL Total Protein (6.5-8.0) g/dL Albumin (3.5-5.0) g/dL Influenza Type A (PCR) (Negative) Influenza Type B (PCR) (Negative) RSV RNA Qual (PCR) (Negative) SARS-CoV-2 RNA (RT-PCR) (Negative) ABG Data Attestation ABG: I personally reviewed and interpreted this ABG as follows: Interpretation: Respiratory hypoxia Independent Interpretation I performed an independent interpretation of an: EKG and Plain X-Ray Interpretation: Sinus tachycardia with heart rate 143 beats per minute IVCD nonspecific ST elevation with tachycardic likely post epinephrine effect Repeat EKG showed normal sinus rhythm heart rate 99 beats per minute QS complex in the inferior leads no acute ST elevation or ischemic Radiology Impression Discussion of test interpretation with radiology: I have reviewed the radiologist's reading. Critical Care Time Critical Care Time Critical Care Time: Yes Total Critical Care Time: 70 Attestation: The patient was critically ill with a high probability of imminent or life threatening deterioration. I spent greater than ?75??minutes of discontinuous time evaluating the patient,delivering critical care at the bedside, discussing and evaluating pertinent data with consultants. Critical care time does not include time spent performing separately billable procedures or teaching. Total time spent performing critical care was 70???minutes. Discharge Plan Discharge Clinical Impression: Acute cardiogenic pulmonary edema, End stage chronic kidney disease Patient Disposition: Admitted As Inpatient
[2024-01-14 02:57] LABS: Influenza A PCR NEGATIVE (Negative); Influenza B PCR NEGATIVE (Negative); Resp Syncy Virus RNA Qual PCR NEGATIVE (Negative); SARS COV2 PCR INHOUSE NEGATIVE (Negative)
[2024-01-14] MEDS: cefTRIAXone sodium 1 GM in 0.9 % Sodium Chloride 50 ML IV (02:57)
[2024-01-14 03:03] LABS: B Type Natriuretic Peptide 2710 pg/mL (<100)
[2024-01-14] MEDS: Bumetanide 1 MG/4 ML VIAL 2 MG IVPUSH (03:15)
[2024-01-14 04:48] LABS: Reflex Lactate? Lactic Acid Added
--- NOTE | 2024-01-14 04:58 | P.HPHOSP_ITS ---
History of Present Illness Date of Service: 01/14/24 Attending physician on admission: Keon Rubin Chief Complaint: Shortness on breath Elias Correa is a 68 years old man with past medical history significant for end-stage renal disease on hemodialysis (MWF), CAD, old CVA, gout, hypertension, obesity, type 2 diabetes mellitus and obstructive sleep apnea on CPAP was brought to the emergency department via EMS after he started to experience worsening shortness of breath. He denied any associated chest pain, cough, fevers or chills. He also denied headache, palpitations or dizziness. He was found to have an oxygen saturation of 80% by EMS. Denied any acute gastrointestinal genitourinary symptoms. He does have edema to the lower extremities. Denies alcohol abuse, tobacco smoking or illicit drug use. His last hemodialysis was Monday without any complication. He has not missed any hemodialysis session. He still makes some urine. In the ED he was found to have marked tachypnea and tachycardia. His O2 sats were 83% on room air. He was placed on BiPAP. Blood workup is remarkable for leukocytosis of 22.6, hemoglobin 9.6 (prior 7.69), bicarb 21, anion gap 46 and lactic acid 4.0. LFTs are normal. Glucose is 324. CXR showed diffuse interstitial prominence suspicious for interstitial edema and small pleural effusion with adjacent bibasilar opacity which may represent atelectasis. ED tx: Furosemide 100 mg IV, Nitro ointment 0.5 mg transdermal, ceftriaxone 1 g IV, Bumex 2 mg IV EMS tx: Epinephrine, DuoNeb and Solu-Medrol. Review of Systems 2 Review of Systems: All 12 systems were reviewed and normal except as noted in HPI. [facility] Medical History Difficulty swallowing Venous insufficiency CVA (cerebral vascular accident) Myocardial infarction CAD (coronary artery disease) Thoracic aortic aneurysm Cervical herniated disc Hemodialysis patient Renal failure Carotid stenosis Depression Elevated cholesterol Peripheral neuropathy Gout Arthritis Anemia Hypertension Diabetes Chronic kidney disease (CKD) Sleep apnea Surgical History History of esophagogastroduodenoscopy (EGD) H/O colonoscopy Hx of coronary angioplasty Social History Are you a primary care program director to a significant other at home: No Do you presently have visiting nurse or other home services: No Patient Tobacco Use Status: Former Tobacco user Quit Date: Tobacco use type: Cigarette Smoked in Last 30 Days: No Use of substances other than those prescribed or required for medical reasons: No Advance Directives: No Advance Directives Information Provided: No Meds Allergies Allergy/AdvReac Type Severity Reaction Status Date / Time ibuprofen [From Motrin] Allergy Intermediate Itching Verified 01/14/24 02:09 Active Medications: Current Medications Heparin Sodium (Porcine) (Heparin Sodium,Porcine 5,000 Unit/Ml Vial) 5,000 unit SUBCUT Q12H FIFI Sodium Chloride (0.9 % Sodium Chloride Flush 3 Ml Syringe) 3 ml IVFLUSH QSHIFT FIFI Home Medications ?Medication ?Instructions ?Recorded ?Confirmed ?Last Taken ?Type allopurinol 100 mg tablet 2 tab PO DAILY 06/15/22 06/15/22 Unknown History aspirin 81 mg tablet,delayed 81 mg PO DAILY 06/15/22 06/15/22 06/20/22 History release atorvastatin 80 mg tablet 1 tab PO DAILY 06/15/22 06/15/22 Unknown History carvedilol 12.5 mg tablet 12.5 mg PO BID 06/15/22 06/15/22 06/23/22 History cholecalciferol (vitamin D3) 50 50 mcg PO DAILY 06/15/22 06/15/22 Unknown History mcg (2,000 unit) capsule (Vitamin D3) cyanocobalamin (vitamin B-12) 1,000 mcg PO DAILY 06/15/22 06/15/22 Unknown History 1,000 mcg tablet (Vitamin B-12) fluticasone propionate 50 1 spray intranasal DAILY 06/15/22 06/15/22 Unknown History mcg/actuation nasal spray,suspension furosemide 80 mg tablet 80 mg PO DAILY 06/15/22 06/15/22 Unknown History gabapentin 100 mg capsule 1 cap PO DAILY PRN nerve pain 06/15/22 06/15/22 Unknown History hydralazine 25 mg tablet 25 mg PO TID 06/15/22 06/15/22 Unknown History isosorbide mononitrate 30 mg 30 mg PO DAILY 06/15/22 06/15/22 Unknown History tablet,extended release 24 hr losartan 50 mg tablet 50 mg PO DAILY 06/15/22 06/15/22 Unknown History meclizine 25 mg tablet 1 tab PO BID PRN Vertigo 06/15/22 06/15/22 Unknown History melatonin 10 mg tablet 10 mg PO BEDTIME 06/15/22 06/15/22 Unknown History omega-3 fatty acids-fish oil 684 1 cap PO DAILY 06/15/22 06/15/22 06/22/22 History mg-1,200 mg capsule,delayed release omeprazole 20 mg tablet,delayed 20 mg PO BID 06/15/22 06/16/22 06/23/22 History release folic acid 1 mg tablet 1 tab PO DAILY 06/16/22 06/16/22 Unknown History vitamin B complex and vitamin C 1 cap PO DAILY 06/16/22 06/16/22 Unknown History no.20-folic acid 1 mg capsule (Renal Caps) Physical Exam 2 Vital Signs and Narrative: Vital Signs: Last Vital Signs Temp 98.8 F 01/14/24 02:58 Pulse 108 H 01/14/24 04:03 Resp 24 H 01/14/24 04:03 BP 124/70 01/14/24 04:03 Pulse Ox 95 01/14/24 04:03 O2 Del Method Nasal Cannula 01/14/24 04:03 O2 Flow Rate 3 01/14/24 04:03 BMI result Body Mass Index 40.9 Constitutional - Awake and Alert, No apparent distress. Pleasant. Cooperative. Obese. Nasal cannula in place. HEENT - Pupils equally round. Normal sclerae. Dry oral mucosa. Heart - Tachycardia. Regular rhythm. Lungs - Normal lung expansion, Normal respiratory effort, No respiratory distress. Tachypnea. Bilateral crackles. Chest - Left IJ central line in place. Abdomen - NT / ND; +BS; No rebound or guarding Extremities - Pitting edema bilaterally. Left arm AV fistula with good thrill. Skin - Warm/Dry Neurological - Alert & oriented x3. No focal weakness grossly noted. Normal speech. Psychological - Appropriate affect Results Labs 01/14/24 02:10 01/14/24 02:10 Labs: Laboratory Results - last 24 hr 01/14/24 01/14/24 01/14/24 02:10 02:16 02:17 MCV 107.3 H MCH 34.9 H MCHC 32.5 RDW 14.9 Plt Count 331 D MPV 10.0 Immature Gran % (Auto) 1.7 H Neut % (Auto) 80.5 H Lymph % (Auto) 10.7 L [place] % (Auto) 6.0 Eos % (Auto) 0.7 Baso % (Auto) 0.4 Lymph # (Auto) 2.4 [place] # (Auto) 1.4 H Eos # (Auto) 0.2 Baso # (Auto) 0.1 Abs Immat Gran (auto) 0.38 H Absolute Neuts (auto) 18.2 H Absolute Nucleated RBC 0.000 Nucleated RBC % (auto) 0.0 PT 12.6 INR 1.0 APTT 25.3 L VBG pH 7.39 VBG pCO2 40 VBG pO2 168 VBG HCO3 24 VBG O2 Saturation 100.0 VBG Base Excess -0.2 Anion Gap 25 H Estim Creat Clear Calc 10.1 Estimated GFR 6 Random Glucose 324 H Lactic Acid Calcium 9.5 D Total Bilirubin 0.6 AST 19 ALT 14 Alkaline Phosphatase 70 Troponin I High Sens 191.3 H* B-Natriuretic Peptide 2710 H Total Protein 7.2 Albumin 4.0 Influenza Type A (PCR) NEGATIVE Influenza Type B (PCR) NEGATIVE RSV RNA Qual (PCR) NEGATIVE SARS-CoV-2 RNA (RT-PCR) NEGATIVE 01/14/24 02:45 MCV MCH MCHC RDW Plt Count MPV Immature Gran % (Auto) Neut % (Auto) Lymph % (Auto) [place] % (Auto) Eos % (Auto) Baso % (Auto) Lymph # (Auto) [place] # (Auto) Eos # (Auto) Baso # (Auto) Abs Immat Gran (auto) Absolute Neuts (auto) Absolute Nucleated RBC Nucleated RBC % (auto) PT INR APTT VBG pH VBG pCO2 VBG pO2 VBG HCO3 VBG O2 Saturation VBG Base Excess Anion Gap Estim Creat Clear Calc Estimated GFR Random Glucose Lactic Acid 4.0 H* Calcium Total Bilirubin AST ALT Alkaline Phosphatase Troponin I High Sens B-Natriuretic Peptide Total Protein Albumin Influenza Type A (PCR) Influenza Type B (PCR) RSV RNA Qual (PCR) SARS-CoV-2 RNA (RT-PCR) Imaging Radiologist's Impressions: Impressions Chest X-Ray 01/14/24 02:09 IMPRESSION: Diffuse interstitial prominence suspicious for interstitial edema. Small pleural effusions with adjacent bibasilar opacities which may represent atelectasis. Assessment and Plan (1) Fluid overload: Qualifiers: Hypervolemia type: unspecified Qualified Code(s): E87.70 - Fluid overload, unspecified Status: Acute (2) Elevated troponin: Status: Acute (3) Hypoxic respiratory failure: Qualifiers: Chronicity: acute Qualified Code(s): J96.01 - Acute respiratory failure with hypoxia Status: Acute Plan Elias Correa is a 68 years old man admitted with: * Hypoxic respiratory failure secondary to fluid overload in the setting of end- stage renal disease on hemodialysis. Off BiPAP and s/p Bumex and furosemide IV (pt has not urinated yet) Admit to hospitalist service. Supplemental O2 > to keep oxygen saturation above 90%. Nephrology consult for urgent hemodialysis -notified by ED. * Elevated troponin likely demand ischemia due to marked tachycardia (143 bpm on initial ECG -pt was given epinephrine by EMS) and fluid overload, however, patient is high risk for ACS. Patient denies chest pain. Recheck troponin. Aspirin 325 mg PO now then 81 mg PO daily. Will treat with Lovenox Cardiology consult. * SIRS criteria and lactic acidosis. Doubt sepsis. This is likely secondary to renal failure. Urgent hemodialysis. Continue to monitor lactic acid. * ILBBB noted in the setting of tachycardia. No chest pain. * Gout. Continue allopurinol. * Type 2 diabetes mellitus. Diabetic diet. BG checks before meals and bedtime. Insulin sliding scale. * Essential hypertension. Continue home meds. * Hyperlipidemia. Continue statin. * AGUSTIN. Nocturnal CPAP. * Obesity. BMI 40.9 kg/m2. Code status: Full DVT prophylaxis: Lovenox Patient will need hospitalization for at least 2 midnights for hypoxic respiratory treatment management with urgent hemodialysis, supplemental oxygen and close monitoring of vital signs and blood workup. He will also need evaluation by subspecialties. Quality Stroke Does the patient have a stroke diagnosis?: No VTE Prior VTE?: No VTE Risk Level:: Medical - moderate - high VTE Device Contraindication: Treatment Not Indicated VTE Drug Contraindication: N/A - Med Ordered
--- NOTE | 2024-01-14 05:34 | MHC.EDTECH ---
THIS TECH SEND OVER EKG TO DR. AVALOS @5:25 AM
[2024-01-14 05:46] LABS: ~Lactic Acid-LAB USE ONLY 0.9 mmol/L (0.5-2.0)
[2024-01-14] MEDS: Aspirin Enteric Coated 325 MG TABLET.DR PO (06:12)
--- NOTE | 2024-01-14 06:24 | PM.CNNEP ---
History of Present Illness Reason for Consult Consult date: 01/14/24 Chief Complaint Chief complaint: Hypoxic Respiratory Failure [facility] Past Medical History Medical History Difficulty swallowing Venous insufficiency CVA (cerebral vascular accident) Myocardial infarction CAD (coronary artery disease) Thoracic aortic aneurysm Cervical herniated disc Hemodialysis patient Renal failure Carotid stenosis Depression Elevated cholesterol Peripheral neuropathy Gout Arthritis Anemia Hypertension Diabetes Chronic kidney disease (CKD) Sleep apnea Surgical History Surgical History History of esophagogastroduodenoscopy (EGD) H/O colonoscopy Hx of coronary angioplasty Social History Social History Are you a primary healthcare representative to a significant other at home: No Do you presently have visiting nurse or other home services: No Patient Tobacco Use Status: Former Tobacco user Quit Date: Tobacco use type: Cigarette Smoked in Last 30 Days: No Use of substances other than those prescribed or required for medical reasons: No Advance Directives: No Advance Directives Information Provided: No Meds Allergies Allergy/AdvReac Type Severity Reaction Status Date / Time ibuprofen [From Motrin] Allergy Intermediate Itching Verified 01/14/24 02:09 Active Medications: Current Medications Enoxaparin Sodium (Enoxaparin Sodium 120 Mg/0.8 Ml Syringe) 120 mg 1 mg/kg (120 mg) SUBCUT ONCE ONE Stop: 01/14/24 06:06 Glucose (Glucose Gel 15 Gm Gel..Gram.) 15 gm PO Q15M PRN; Protocol PRN Reason: per Hypoglycemia Standing Ord. Dextrose (D10) 250 mls @ 750 mls/hr IV Q15M PRN; Protocol PRN Reason: per Hypoglycemia Standing Ord. Insulin Human Lispro (Insulin Lispro 100 Unit/Ml 3 Ml Vial) 0 unit SUBCUT QIDACHS [facility]; Protocol Sodium Chloride (0.9 % Sodium Chloride Flush 3 Ml Syringe) [address] [facility] Home Medications ?Medication ?Instructions ?Recorded ?Confirmed ?Last Taken ?Type allopurinol 100 mg tablet 2 tab PO DAILY 06/15/22 06/15/22 Unknown History aspirin 81 mg tablet,delayed 81 mg PO DAILY 06/15/22 06/15/22 06/20/22 History release atorvastatin 80 mg tablet 1 tab PO DAILY 06/15/22 06/15/22 Unknown History carvedilol 12.5 mg tablet 12.5 mg PO BID 06/15/22 06/15/22 06/23/22 History cholecalciferol (vitamin D3) 50 50 mcg PO DAILY 06/15/22 06/15/22 Unknown History mcg (2,000 unit) capsule (Vitamin D3) cyanocobalamin (vitamin B-12) 1,000 mcg PO DAILY 06/15/22 06/15/22 Unknown History 1,000 mcg tablet (Vitamin B-12) fluticasone propionate 50 1 spray intranasal DAILY 06/15/22 06/15/22 Unknown History mcg/actuation nasal spray,suspension furosemide 80 mg tablet 80 mg PO DAILY 06/15/22 06/15/22 Unknown History gabapentin 100 mg capsule 1 cap PO DAILY PRN nerve pain 06/15/22 06/15/22 Unknown History hydralazine 25 mg tablet 25 mg PO TID 06/15/22 06/15/22 Unknown History isosorbide mononitrate 30 mg 30 mg PO DAILY 06/15/22 06/15/22 Unknown History tablet,extended release 24 hr losartan 50 mg tablet 50 mg PO DAILY 06/15/22 06/15/22 Unknown History meclizine 25 mg tablet 1 tab PO BID PRN Vertigo 06/15/22 06/15/22 Unknown History melatonin 10 mg tablet 10 mg PO BEDTIME 06/15/22 06/15/22 Unknown History omega-3 fatty acids-fish oil 684 1 cap PO DAILY 06/15/22 06/15/22 06/22/22 History mg-1,200 mg capsule,delayed release omeprazole 20 mg tablet,delayed 20 mg PO BID 06/15/22 06/16/22 06/23/22 History release folic acid 1 mg tablet 1 tab PO DAILY 06/16/22 06/16/22 Unknown History vitamin B complex and vitamin C 1 cap PO DAILY 06/16/22 06/16/22 Unknown History no.20-folic acid 1 mg capsule (Renal Caps) Physical Exam Vital Signs: Last Vital Signs Temp 98.8 F 01/14/24 02:58 Pulse 108 H 01/14/24 04:03 Resp 26 H 01/14/24 05:50 BP 124/70 01/14/24 04:03 Pulse Ox 95 01/14/24 04:03 O2 Del Method Nasal Cannula 01/14/24 04:03 O2 Flow Rate 3 01/14/24 04:03 BMI result Body Mass Index 40.9 Results Lab Results 01/14/24 02:10 01/14/24 02:10 Lab results: Chemistry 01/14/24 02:10 Sodium 135 Potassium 4.1 Carbon Dioxide 21 L BUN 46 H Creatinine 9.29 H* Calcium 9.5 D Hematology 01/14/24 02:10 WBC 22.6 H Hgb 9.6 L D Plt Count 331 D Assessment and Plan (1) Fluid overload: Qualifiers: Hypervolemia type: unspecified Qualified Code(s): E87.70 - Fluid overload, unspecified Status: Acute (2) End stage chronic kidney disease: Status: Acute Plan 68 year old male, known patient of mine with hx of ESRD on HD MWF presented to ED for worsening SOB. Last HD was Monday. Placed on BIPAP, now CXR with pulm edema. Will arrange for urgent HD today. Total time managing care of this patient today: 0 minutes. Procedures Date of Service Date of Service: 01/14/24
[2024-01-14 06:41] LABS: Basophils Absolute Auto 0.1 X10*3/uL (0.0-0.2); Basophils Percent Auto 0.2 % (0-2); Hematocrit 26.1 % (42.0-52.0); Hemoglobin 8.6 g/dl (14.0-18.0); Imm Gran Pct Auto 1.3 % (0.0-0.4); Lymphocytes Absolute Auto 0.4 X10*3/uL (1.2-4.9); Lymphocytes Percent Auto 1.7 % (20-40); MANUAL DIFF FLAG SCAN; Mean Corpuscular Hemoglobin 34.4 pg (27.0-33.0); Mean Corpuscular Volume 104.4 fL (80.0-98.0); Mean Platelet Volume 10.4 fL (9.4-12.4); Monocytes Absolute Auto 0.7 X10*3/uL (0.1-1.2); Monocytes Percent Auto 2.8 % (2-11); Neutrophils Absolute Auto 21.8 x10*3/uL (2.0-8.3); Platelet Count 244 X10*3/uL (160-400); Red Cell Distribution Width 14.7 % (11.0-16.0); SCAN SMEAR FLAG 1; White Blood Count 23.2 X10*3/uL (4.8-10.8)
[2024-01-14 07:04] LABS: Alanine Aminotransferase 18 U/L (0-40); Albumin Level 3.7 g/dL (3.5-5.0); Alkaline Phosphatase 63 U/L (39-117); Anion Gap 20 (12-20); Aspartate Amino Transferase 25 U/L (5-37); Bilirubin Total 0.5 mg/dL (0.0-1.0); Blood Urea Nitrogen 49 mg/dL (9-16); Calcium 9.7 mg/dL (8.4-10.2); Carbon Dioxide 25 mmol/L (22-29); Chloride 94 mmol/L (96-108); Creatinine Clr Calc Pharmacy 10.5; Estimated Glomerular Filt Rate 6; Glucose Random 203 mg/dL (60-115); Magnesium 3.3 mg/dL (1.6-2.6); Potassium 4.3 mmol/L (3.3-5.1); Sodium 135 mmol/L (135-145); Total Protein 6.7 g/dL (6.5-8.0)
[2024-01-14 07:16] LABS: SLIDE REVIEW VERIFIED
[2024-01-14] MEDS: Enoxaparin Sodium 120 MG/0.8 ML SYRINGE SUBCUT (07:27)
--- NOTE | 2024-01-14 07:52 | PC.NURSE ---
Resumed care of pt at 0700, Pt AOx4, verbalizing feeling a lot better and requesting BIPAP off, Respiratory called and gave the ok to put him on 2L NC. Pt resting/quetly in stretcher, eating breakfast. Call chang with in reach, awaiting dialysis.
[2024-01-14 08:17] LABS: Glucose, Whole Blood 178 mg/dL (60-115)
[2024-01-14 08:25] LABS: Lactic Acid 1.1 mmol/L (0.5-2.0)
--- NOTE | 2024-01-14 08:33 | PC.NURSE ---
Addendum entered by Anat Nina 01/14/24 08:36: Insulin not given pt off unit at dialysis. Original Note: Pt brought up to dialysis, on awake overnight monitor. 2L NC O2:96
--- NOTE | 2024-01-14 08:48 | PC.NURSE ---
Critical trop taken from lab, provider notified, no new orders placed at this time
--- NOTE | 2024-01-14 09:02 | PHA.MEDREC ---
Pharmacy Consult ? Medication Reconciliation Pharmacy has completed the medication reconciliation.
--- NOTE | 2024-01-14 10:13 | P.CONCA_ITS ---
History of Present Illness History of Present Illness Date of Service: 01/14/24 Chief complaint: Hypoxic Respiratory Failure Narrative: This is a cardiology consultation regarding elevated troponins. Patient has a history of ESRD on hemodialysis. Question of CAD. Many comorbidities including hypertension, diabetes, AGUSTIN. Patient states he goes to [facility]. Unclear what is coronary disease status but he states he had may be an angioplasty done some 20 years ago. Again we need to obtain primary information and verify. Current admission is because of shortness of breath. In the ER, he was diuresed, got nitroglycerin as well as diuretic and today he is under dialysis as I evaluated him. He states he is generally doing well without any obvious cardiac symptoms but suddenly started having shortness of breath is today leading to this presentation. Today, he states he is feeling much better. He does not have any anginal-type symptoms/chest pain. Slight leg swelling. Review of Systems 2 Review of Systems: Yes all other systems are reviewed and are negative Constitutional: Constitutional: Reports as per HPI and Reports no additional constitutional complaints Eyes: Eyes: Reports as per HPI and Denies no additional eye complaints ENT: Denies system reviewed and no additional complaints, except as documented and Reports as per HPI Cardiovascular: Cardiovascular: Reports as per HPI, Reports no additional cardiovascular complaints, Denies acrocyanosis, Denies cool extremities, Denies chest pain, Reports leg edema, Denies lightheadedness, Denies palpitations and Reports dyspnea Respiratory: Respiratory: Reports as per HPI, Denies no additional respiratory complaints and Reports dyspnea Gastrointestinal: Gastrointestinal: Reports as per HPI and Denies no additional gastrointestinal complaints Genitourinary: Genitourinary: Reports no additional male genitourinary complaints and Reports as per HPI Musculoskeletal: Musculoskeletal: Reports no additional musculoskeletal complaints and Reports as per HPI Integumentary/Breasts: Skin/Breast: Reports system reviewed and no additional complaints, except as docu Neurologic: Reports system reviewed and no additional complaints, except as documented and Reports as per HPI Psychiatric: Psychiatric: Reports no additional psychiatric complaints and Reports as per HPI Endocrine: Endocrine: Reports no additional endocrine complaints, Reports as per HPI and Denies palpitations Hematologic/Lymphatic: Hematologic/Lymphatic: Reports no additional hematologic/lymphatic complaints and Reports as per HPI Allergic/Immunologic: Allergic/Immunologic: Reports no additional allergic/immunologic complaints and Reports as per HPI [facility] Past Medical History Medical History Difficulty swallowing Venous insufficiency CVA (cerebral vascular accident) Myocardial infarction CAD (coronary artery disease) Thoracic aortic aneurysm Cervical herniated disc Hemodialysis patient Renal failure Carotid stenosis Depression Elevated cholesterol Peripheral neuropathy Gout Arthritis Anemia Hypertension Diabetes Chronic kidney disease (CKD) Sleep apnea Family History Pertinent family history: No pertinent family history Surgical History Surgical History History of esophagogastroduodenoscopy (EGD) H/O colonoscopy Hx of coronary angioplasty Social History Social History Are you a primary urgent care to a significant other at home: No Do you presently have visiting nurse or other home services: No Patient Tobacco Use Status: Former Tobacco user Quit Date: Tobacco use type: Cigarette Smoked in Last 30 Days: No Use of substances other than those prescribed or required for medical reasons: No Advance Directives: No Advance Directives Information Provided: No Meds Allergies Allergy/AdvReac Type Severity Reaction Status Date / Time ibuprofen [From Motrin] Allergy Intermediate Itching Verified 01/14/24 02:09 Active Medications: Current Medications Glucose (Glucose Gel 15 Gm Gel..Gram.) 15 gm PO Q15M PRN; Protocol PRN Reason: per Hypoglycemia Standing Ord. Dextrose (D10) 250 mls @ 750 mls/hr IV Q15M PRN; Protocol PRN Reason: per Hypoglycemia Standing Ord. Insulin Human Lispro (Insulin Lispro 100 Unit/Ml 3 Ml Vial) 0 unit SUBCUT [facility]; Protocol Last Admin: 01/14/24 08:35 Dose: Not Given Sodium Chloride (0.9 % Sodium Chloride Flush 3 Ml Syringe) 3 ml IVFLUSH [facility] Home Medications ?Medication ?Instructions ?Recorded ?Confirmed ?Last Taken ?Type allopurinol 100 mg tablet 2 tab PO DAILY@1200 06/15/22 01/14/24 Unknown History aspirin 81 mg tablet,delayed 81 mg PO DAILY 06/15/22 01/14/24 01/13/24 History release atorvastatin 80 mg tablet 1 tab PO BEDTIME 06/15/22 01/14/24 Unknown History cholecalciferol (vitamin D3) 50 50 mcg PO DAILY 06/15/22 01/14/24 01/13/24 History mcg (2,000 unit) capsule (Vitamin D3) cyanocobalamin (vitamin B-12) 1,000 mcg PO DAILY 06/15/22 01/14/24 01/13/24 History 1,000 mcg tablet (Vitamin B-12) fluticasone propionate 50 1 spray intranasal BEDTIME 06/15/22 01/14/24 Unknown History mcg/actuation nasal spray,suspension furosemide 80 mg tablet 80 mg PO DAILY 06/15/22 01/14/24 01/13/24 History gabapentin 100 mg capsule 1 cap PO BEDTIME nerve pain 06/15/22 01/14/24 Unknown History losartan 50 mg tablet 50 mg PO DAILY 06/15/22 01/14/24 01/13/24 History melatonin 10 mg tablet 10 mg PO BEDTIME 06/15/22 01/14/24 Unknown History omega-3 fatty acids-fish oil 684 1 cap PO DAILY 06/15/22 01/14/24 01/13/24 History mg-1,200 mg capsule,delayed release omeprazole 20 mg tablet,delayed 20 mg PO BID 06/15/22 01/14/24 01/13/24 History release folic acid 1 mg tablet 1 tab PO DAILY 06/16/22 01/14/24 01/13/24 History vitamin B complex and vitamin C 1 cap PO DAILY 06/16/22 01/14/24 01/13/24 History no.20-folic acid 1 mg capsule (Renal Caps) metoprolol succinate 50 mg 50 mg PO DAILY 01/14/24 01/14/24 01/13/24 History tablet,extended release 24 hr sevelamer carbonate 800 mg tablet 1,600 mg PO BIDWM@0800,1200 01/14/24 01/14/24 01/13/24 History sevelamer carbonate 800 mg tablet 2,400 mg PO DAILY@1800 01/14/24 01/14/24 Unknown History Physical Exam 2 Vital Signs: Vital Signs: Last Vital Signs Temp 98.8 F 01/14/24 02:58 Pulse 108 H 01/14/24 04:03 Resp 21 H 01/14/24 07:18 BP 158/94 H 01/14/24 07:29 Pulse Ox 98 01/14/24 07:29 O2 Del Method BiPAP 01/14/24 07:29 O2 Flow Rate 12.8 01/14/24 07:29 BMI result Body Mass Index 40.9 Const: General: comfortable and no acute distress O rientation/consciousness: patient oriented x3 HEENT: Other: Unremarkable Head: Yes normal to inspection Neck: Neck: Yes normal visual inspection Chest: Chest palpation & inspection: normal inspection of the chest Resp: Auscultation: crackles Cardio: Palpation: normal PMI Heart sounds: S1 normal heart sound present, S2 normal heart sound present, no gallops, no murmurs and no rubs GI: Palpation (GI): Soft to palpation Back/Spine/Pelvis: Other: unremarkable Skin: General skin exam: no rashes or lesions noted Neuro: General: patient oriented x3 Extrem: Other: 1+ edema General: Yes normal to inspection Psych: Mental Status: mental status grossly normal Objective Labs and Meds 01/14/24 06:06 01/14/24 06:06 Lab results: Laboratory Results - last 24 hr 01/14/24 01/14/24 01/14/24 02:10 02:16 02:17 WBC 22.6 H RBC 2.75 L D Hgb 9.6 L D Hct 29.5 L D MCV 107.3 H MCH 34.9 H MCHC 32.5 RDW 14.9 Plt Count 331 D MPV 10.0 Immature Gran % (Auto) 1.7 H Neut % (Auto) 80.5 H Lymph % (Auto) 10.7 L [place] % (Auto) 6.0 Eos % (Auto) 0.7 Baso % (Auto) 0.4 Lymph # (Auto) 2.4 [place] # (Auto) 1.4 H Eos # (Auto) 0.2 Baso # (Auto) 0.1 Abs Immat Gran (auto) 0.38 H Absolute Neuts (auto) 18.2 H Absolute Nucleated RBC 0.000 Nucleated RBC % (auto) 0.0 Smear Tech's Comments PT 12.6 INR 1.0 APTT 25.3 L VBG pH 7.39 VBG pCO2 40 VBG pO2 168 VBG HCO3 24 VBG O2 Saturation 100.0 VBG Base Excess -0.2 Sodium 135 Potassium 4.1 Chloride 93 L Carbon Dioxide 21 L Anion Gap 25 H BUN 46 H Creatinine 9.29 H* Estim Creat Clear Calc 10.1 Estimated GFR 6 POC Glucose Random Glucose 324 H Lactic Acid Lactic Acid F/U @ 2Hr Calcium 9.5 D Magnesium Total Bilirubin 0.6 AST 19 ALT 14 Alkaline Phosphatase 70 Troponin I High Sens 191.3 H* B-Natriuretic Peptide 2710 H Total Protein 7.2 Albumin 4.0 Influenza Type A (PCR) NEGATIVE Influenza Type B (PCR) NEGATIVE RSV RNA Qual (PCR) NEGATIVE SARS-CoV-2 RNA (RT-PCR) NEGATIVE 01/14/24 01/14/24 01/14/24 02:45 05:31 06:06 WBC 23.2 H RBC 2.50 L Hgb 8.6 L Hct 26.1 L MCV 104.4 H MCH 34.4 H MCHC 33.0 RDW 14.7 Plt Count 244 D MPV 10.4 Immature Gran % (Auto) 1.3 H Neut % (Auto) 94.0 H Lymph % (Auto) 1.7 L [place] % (Auto) 2.8 Eos % (Auto) 0.0 Baso % (Auto) 0.2 Lymph # (Auto) 0.4 L [place] # (Auto) 0.7 Eos # (Auto) 0.0 Baso # (Auto) 0.1 Abs Immat Gran (auto) 0.30 H Absolute Neuts (auto) 21.8 H Absolute Nucleated RBC 0.000 Nucleated RBC % (auto) 0.0 Smear Tech's Comments VERIFIED PT INR APTT VBG pH VBG pCO2 VBG pO2 VBG HCO3 VBG O2 Saturation VBG Base Excess Sodium 135 Potassium 4.3 Chloride 94 L Carbon Dioxide 25 Anion Gap 20 BUN 49 H Creatinine 8.95 H* Estim Creat Clear Calc 10.5 Estimated GFR 6 POC Glucose Random Glucose 203 H Lactic Acid 4.0 H* Lactic Acid F/U @ 2Hr 0.9 Calcium 9.7 Magnesium 3.3 H Total Bilirubin 0.5 AST 25 ALT 18 Alkaline Phosphatase 63 Troponin I High Sens B-Natriuretic Peptide Total Protein 6.7 Albumin 3.7 Influenza Type A (PCR) Influenza Type B (PCR) RSV RNA Qual (PCR) SARS-CoV-2 RNA (RT-PCR) 01/14/24 01/14/24 08:10 08:14 WBC RBC Hgb Hct MCV MCH MCHC RDW Plt Count MPV Immature Gran % (Auto) Neut % (Auto) Lymph % (Auto) [place] % (Auto) Eos % (Auto) Baso % (Auto) Lymph # (Auto) [place] # (Auto) Eos # (Auto) Baso # (Auto) Abs Immat Gran (auto) Absolute Neuts (auto) Absolute Nucleated RBC Nucleated RBC % (auto) Smear Tech's Comments PT INR APTT VBG pH VBG pCO2 VBG pO2 VBG HCO3 VBG O2 Saturation VBG Base Excess Sodium Potassium Chloride Carbon Dioxide Anion Gap BUN Creatinine Estim Creat Clear Calc Estimated GFR POC Glucose 178 H Random Glucose Lactic Acid 1.1 Lactic Acid F/U @ 2Hr Calcium Magnesium Total Bilirubin AST ALT Alkaline Phosphatase Troponin I High Sens 3581.8 H* D B-Natriuretic Peptide Total Protein Albumin Influenza Type A (PCR) Influenza Type B (PCR) RSV RNA Qual (PCR) SARS-CoV-2 RNA (RT-PCR) ECG Interpretation: EKG shows sinus rhythm at 99/Min; old inferior infarct; nonspecific intraventricular conduction defect. Nonspecific ST-T changes. In the initial EKG, sinus tachycardia, can not exclude old inferior infarct and incomplete left bundle-branch block type pattern. Imaging Radiologist's impression: Impressions Chest X-Ray 01/14/24 02:09 IMPRESSION: Diffuse interstitial prominence suspicious for interstitial edema. Small pleural effusions with adjacent bibasilar opacities which may represent atelectasis. Assessment and Plan (1) NSTEMI (non-ST elevated myocardial infarction): Status: Acute (2) Hypoxic respiratory failure: Qualifiers: Chronicity: acute Qualified Code(s): J96.01 - Acute respiratory failure with hypoxia Status: Acute (3) End stage chronic kidney disease: Status: Acute (4) Acute cardiogenic pulmonary edema: Status: Acute Plan Troponin level 191 followed by 3581. Cardiac BNP is 2710. Chest x-ray reported to have diffuse interstitial prominence, suspicious for interstitial edema. Small pleural effusions. Overall, possibly acute pulmonary edema but unclear precipitating factor. We can treat him as NSTEMI. IV heparin drip, aspirin statins. Echocardiogram tomorrow. Will need to get old records from [facility]. May need a diagnostic catheterization. Procedures Date of Service Date of Service: 01/14/24
[2024-01-14 12:26] LABS: Glucose, Whole Blood 166 mg/dL (60-115)
--- NOTE | 2024-01-14 12:27 | PC.NURSE ---
Pt returned from dialysis, critical trop taken and given to MD PHANI to not get placed on heparin drip until tomorrow morning at 5am, d/t receiving subq lovenox this am. Pt does not have any complaints of CP/SOB/dizziness at this time. Pt given education on when to alert staff.
[2024-01-14] MEDS: Insulin Lispro 100 UNIT/ML 3 ML VIAL SUBCUT (12:35)
[2024-01-14] MEDS: Cyanocobalamin (Vitamin B-12) 1,000 MCG TABLET 1000 MCG PO (12:36)
[2024-01-14] MEDS: Folic Acid 1 MG TABLET PO (12:36)
[2024-01-14] MEDS: Aspirin Enteric Coated 81 MG TABLET.DR PO (12:36)
[2024-01-14] MEDS: Furosemide 40 MG TABLET 80 MG PO (12:37)
[2024-01-14] MEDS: 0.9 % Sodium Chloride Flush 3 ML SYRINGE IVFLUSH (12:37)
[2024-01-14] MEDS: Metoprolol Succinate ER 50 MG TAB.ER.24H PO (12:41)
[2024-01-14] MEDS: Losartan Potassium 50 MG TABLET PO (12:42)
[2024-01-14] MEDS: Multivitamin TABLET 1 TAB PO (12:42)
[2024-01-14 13:26] LABS: Hematocrit 27.3 % (42.0-52.0); Hemoglobin 9.3 g/dl (14.0-18.0); Mean Corpuscular HGB Conc 34.1 g/dl (31.0-36.0); Mean Corpuscular Hemoglobin 34.7 pg (27.0-33.0); Mean Corpuscular Volume 101.9 fL (80.0-98.0); Platelet Count 233 X10*3/uL (160-400); Red Blood Count 2.68 X10*6/uL (4.60-5.80); Red Cell Distribution Width 14.7 % (11.0-16.0); White Blood Count 20.8 X10*3/uL (4.8-10.8)
[2024-01-14 13:33] LABS: INTERNATIONAL NORM RATIO 1.1 (0.9-1.1); Prothrombin Time 13.5 SEC (11.1-13.3)
--- NOTE | 2024-01-14 13:34 | PM.DS ---
DS: Providers Provider Date of Service: 01/14/24 Date of admission: 01/14/24 04:49 Date of discharge: 01/14/24 Primary care physician: Sarai Whitfield MD Consults: 01/14/24 04:56 Consult to Nephrology Routine Consulting Provider: Shayne Ramirez Reason for consultation: Fluid overload Has provider been notified: Yes 01/14/24 05:52 Consult to Cardiology Routine Consulting Provider: [facility] [facility] Reason for consultation: Fluid overload, elevated troponin Has provider been notified: Yes Attending physician on discharge: Alexys Donohue Discharging clinician: Alexys Donohue DS: Diagnosis Discharge Diagnosis (1) NSTEMI (non-ST elevated myocardial infarction): Status: Acute (2) Hypoxic respiratory failure: Status: Acute (3) End stage chronic kidney disease: Status: Acute (4) Acute cardiogenic pulmonary edema: Status: Acute DS: Summary Hospital Course Hospital Course: 68 years old man with past medical history significant for end-stage renal disease on hemodialysis (MWF), CAD, old CVA, gout, hypertension, obesity, type 2 diabetes mellitus and obstructive sleep apnea on CPAP was brought to the emergency department via EMS after he started to experience worsening shortness of breath. He denied any associated chest pain, cough, fevers or chills. He also denied headache, palpitations or dizziness. He was found to have an oxygen saturation of 80% by EMS. Denied any acute gastrointestinal genitourinary symptoms. He does have edema to the lower extremities. Denies alcohol abuse, tobacco smoking or illicit drug use. His last hemodialysis was Monday without any complication. He has not missed any hemodialysis session. He still makes some urine. In the ED he was found to have marked tachypnea and tachycardia. His O2 sats were 83% on room air. He was placed on BiPAP. Blood workup is remarkable for leukocytosis of 22.6, hemoglobin 9.6 (prior 7.69), bicarb 21, anion gap 46 and lactic acid 4.0. LFTs are normal. Glucose is 324. CXR showed diffuse interstitial prominence suspicious for interstitial edema and small pleural effusion with adjacent bibasilar opacity which may represent atelectasis. ED tx: Furosemide 100 mg IV, Nitro ointment 0.5 mg transdermal, ceftriaxone 1 g IV, Bumex 2 mg IV EMS tx: Epinephrine, DuoNeb and Solu-Medrol. Hospital course: Patient was admitted Hypoxemic respiratory failure likely due to fluid overload in the setting of end-stage renal disease-chest x-ray shows fluid overload vs bibasilar opacities(? atelectasis ): patient was given bumex,lasix ,ceftriaxone ,bipap in ED-seems improving ,also got HD and received bipap in ed -seems sob feeling improving ,in addition patient recently treated for pneumonia in [facility] -has leucocytosis again ,mild changes in cxr ( more likely fluid overload , but also has bibasilar opacities ) ,blood cultures sent by Ed pending ,no fevers -we will add vanco /zosyn for question of atelactasis vs pneumonia ( considering recent hospital admission,leucocytosis ,cxr bibasilar changes ), please repeat cxr and cbc in am ,follow blood cultures x2 growing Gram-positive cocci in chains . Patient is currently on vanco and Zosyn, patient was given 2 g vanco loading dose, for further vanco dosing can be done as per vanco levels in [facility] because he requires hemodialysis. Tachycardia,tachypnea ,acute lactic acidosis resolved and due to fluid overload sec to esrd ,not sepsis. Nsemti: denies any chest pain,trop is [id number] -received lovenox therapeutic dose ( which we will fine for 24 hours since has esrd ) then switch to heparin drip tomorrow( on 01/15/24 at 5 am ),continue asa,statin,bb. moniter cbc ,bmp and pt/ptt once heparin started. plan: continue vanco and zosyn -repeat cbc and cxr in am ,also follow blood culture -growing Gram-positive cocci in chains . patient receiving first loading dose of vanco 2 gm in ed at the time of transfer,continue vanco-further dosing as per vanco levels in [facility]. received Hd Today nsetmi -received lovenox in ed this morning 6 am -switch to heparin drip tomorrow( on 01/15/24 at 5 am ),moniter pt/ptt as per protocol. moniter cbc ,bmp and pt/ptt once heparin started. Above management discussed with the patient in detail length he understand and in agreement with the above plan, time spent 50 minute. Time Attestation Total time managing care of this patient today: 40 mintues. Discharge Coordination Time (in mins): 40 min Quality: Safe Use of Opioids Does Pt have an Active Cancer Diagnosis on the Problem List?: No Quality: Stroke Does the patient have a stroke diagnosis?: No Physical Exam Vital Signs: Vital Signs: Last Vital Signs Temp 98.8 F 01/14/24 02:58 Pulse 83 01/14/24 12:41 Resp 21 H 01/14/24 07:18 BP 133/76 01/14/24 12:42 Pulse Ox 98 01/14/24 07:29 O2 Del Method BiPAP 01/14/24 07:29 O2 Flow Rate 12.8 01/14/24 07:29 BMI result Body Mass Index 40.9 Appearance: Alert.? Oriented X3.?on 2 liter oxygen cvs: rrr, [id number] , no murmur res: air entry fair ,slightly dimished at bases. abd: no rebound or guarding ,nt, bs present. ext pulses present , no cyanosis. neuro: axo3 , nonfocal. DS: Data Data Completed and Pending Labs on day of discharge: Laboratory Results - last 24 hr 01/14/24 01/14/24 01/14/24 02:10 02:16 02:17 WBC 22.6 H RBC 2.75 L D Hgb 9.6 L D Hct 29.5 L D MCV 107.3 H MCH 34.9 H MCHC 32.5 RDW 14.9 Plt Count 331 D MPV 10.0 Immature Gran % (Auto) 1.7 H Neut % (Auto) 80.5 H Lymph % (Auto) 10.7 L Bremer % (Auto) 6.0 Eos % (Auto) 0.7 Baso % (Auto) 0.4 Lymph # (Auto) 2.4 Bremer # (Auto) 1.4 H Eos # (Auto) 0.2 Baso # (Auto) 0.1 Abs Immat Gran (auto) 0.38 H Absolute Neuts (auto) 18.2 H Absolute Nucleated RBC 0.000 Nucleated RBC % (auto) 0.0 Smear Tech's Comments PT 12.6 INR 1.0 APTT 25.3 L VBG pH 7.39 VBG pCO2 40 VBG pO2 168 VBG HCO3 24 VBG O2 Saturation 100.0 VBG Base Excess -0.2 Sodium 135 Potassium 4.1 Chloride 93 L Carbon Dioxide 21 L Anion Gap 25 H BUN 46 H Creatinine 9.29 H* Estim Creat Clear Calc 10.1 Estimated GFR 6 POC Glucose Random Glucose 324 H Lactic Acid Lactic Acid F/U @ 2Hr Calcium 9.5 D Magnesium Total Bilirubin 0.6 AST 19 ALT 14 Alkaline Phosphatase 70 Troponin I High Sens 191.3 H* B-Natriuretic Peptide 2710 H Total Protein 7.2 Albumin 4.0 Influenza Type A (PCR) NEGATIVE Influenza Type B (PCR) NEGATIVE RSV RNA Qual (PCR) NEGATIVE SARS-CoV-2 RNA (RT-PCR) NEGATIVE 01/14/24 01/14/24 01/14/24 02:45 05:31 06:06 WBC 23.2 H RBC 2.50 L Hgb 8.6 L Hct 26.1 L MCV 104.4 H MCH 34.4 H MCHC 33.0 RDW 14.7 Plt Count 244 D MPV 10.4 Immature Gran % (Auto) 1.3 H Neut % (Auto) 94.0 H Lymph % (Auto) 1.7 L Bremer % (Auto) 2.8 Eos % (Auto) 0.0 Baso % (Auto) 0.2 Lymph # (Auto) 0.4 L Bremer # (Auto) 0.7 Eos # (Auto) 0.0 Baso # (Auto) 0.1 Abs Immat Gran (auto) 0.30 H Absolute Neuts (auto) 21.8 H Absolute Nucleated RBC 0.000 Nucleated RBC % (auto) 0.0 Smear Tech's Comments VERIFIED PT INR APTT VBG pH VBG pCO2 VBG pO2 VBG HCO3 VBG O2 Saturation VBG Base Excess Sodium 135 Potassium 4.3 Chloride 94 L Carbon Dioxide 25 Anion Gap 20 BUN 49 H Creatinine 8.95 H* Estim Creat Clear Calc 10.5 Estimated GFR 6 POC Glucose Random Glucose 203 H Lactic Acid 4.0 H* Lactic Acid F/U @ 2Hr 0.9 Calcium 9.7 Magnesium 3.3 H Total Bilirubin 0.5 AST 25 ALT 18 Alkaline Phosphatase 63 Troponin I High Sens B-Natriuretic Peptide Total Protein 6.7 Albumin 3.7 Influenza Type A (PCR) Influenza Type B (PCR) RSV RNA Qual (PCR) SARS-CoV-2 RNA (RT-PCR) 05/05/24 05/05/24 05/05/24 08:10 08:14 11:08 WBC RBC Hgb Hct MCV MCH MCHC RDW Plt Count MPV Immature Gran % (Auto) Neut % (Auto) Lymph % (Auto) Bremer % (Auto) Eos % (Auto) Baso % (Auto) Lymph # (Auto) Bremer # (Auto) Eos # (Auto) Baso # (Auto) Abs Immat Gran (auto) Absolute Neuts (auto) Absolute Nucleated RBC Nucleated RBC % (auto) Smear Tech's Comments PT INR APTT VBG pH VBG pCO2 VBG pO2 VBG HCO3 VBG O2 Saturation VBG Base Excess Sodium Potassium Chloride Carbon Dioxide Anion Gap BUN Creatinine Estim Creat Clear Calc Estimated GFR POC Glucose 178 H Random Glucose Lactic Acid 1.1 Lactic Acid F/U @ 2Hr Calcium Magnesium Total Bilirubin AST ALT Alkaline Phosphatase Troponin I High Sens 3581.8 H* D 8487.9 H* D B-Natriuretic Peptide Total Protein Albumin Influenza Type A (PCR) Influenza Type B (PCR) RSV RNA Qual (PCR) SARS-CoV-2 RNA (RT-PCR) 01/14/24 01/14/24 12:23 13:21 WBC 20.8 H RBC 2.68 L Hgb 9.3 L Hct 27.3 L MCV 101.9 H MCH 34.7 H MCHC 34.1 RDW 14.7 Plt Count 233 MPV 10.0 Immature Gran % (Auto) Neut % (Auto) Lymph % (Auto) Bremer % (Auto) Eos % (Auto) Baso % (Auto) Lymph # (Auto) Bremer # (Auto) Eos # (Auto) Baso # (Auto) Abs Immat Gran (auto) Absolute Neuts (auto) Absolute Nucleated RBC 0.000 Nucleated RBC % (auto) 0.0 Smear Tech's Comments PT INR APTT VBG pH VBG pCO2 VBG pO2 VBG HCO3 VBG O2 Saturation VBG Base Excess Sodium Potassium Chloride Carbon Dioxide Anion Gap BUN Creatinine Estim Creat Clear Calc Estimated GFR POC Glucose 166 H Random Glucose Lactic Acid Lactic Acid F/U @ 2Hr Calcium Magnesium Total Bilirubin AST ALT Alkaline Phosphatase Troponin I High Sens B-Natriuretic Peptide Total Protein Albumin Influenza Type A (PCR) Influenza Type B (PCR) RSV RNA Qual (PCR) SARS-CoV-2 RNA (RT-PCR) Imaging Chest x-ray: Radiologist's impression: ITS Impressions Chest X-Ray 01/14/24 02:09 IMPRESSION: Diffuse interstitial prominence suspicious for interstitial edema. Small pleural effusions with adjacent bibasilar opacities which may represent atelectasis. Discharge Plan Discharge Anticipated Discharge Date/Time: 01/14/24 12:56 Patient Disposition: er [facility] Discharge Diagnosis: nstemi , unclear reason ? possible fluid overload ,question of atelactasis vs pneumonia Referrals: Sarai Whitfield MD [Primary Care Provider] - 1 Week Discharge Medications: New heparin(porcine) in 0.45% NaCl 25,000 unit/250 mL Parenteral Solution 25,000 unit continuous IV infusion .Q0M Qty: 1 0RF Rx Instructions: start on 01/15/24 at 5 am piperacillin-tazobactam 3.375 gram Recon Soln 2.25 g IV Q8H Qty: 1 0RF Continued losartan 50 mg Tablet 50 mg PO DAILY atorvastatin 80 mg tablet 1 tab PO BEDTIME cyanocobalamin (vitamin B-12) [Vitamin B-12] 1,000 mcg Tablet 1,000 mcg PO DAILY allopurinol 100 mg tablet 2 tab PO DAILY@1200 aspirin [Aspir-81] 81 mg Tablet,Delayed Release (Dr/Ec) 81 mg PO DAILY furosemide 80 mg Tablet 80 mg PO DAILY gabapentin 100 mg capsule 1 cap PO BEDTIME fluticasone propionate 50 mcg/actuation spray,suspension 1 spray intranasal BEDTIME omeprazole 20 mg Tablet,Delayed Release (Dr/Ec) 20 mg PO BID [place] 3 Fish Oil 684-1,200 mg Capsule,Delayed Release(Dr/Ec) 1 cap PO DAILY cholecalciferol (vitamin D3) [Vitamin D3] 50 mcg (2,000 unit) Capsule 50 mcg PO DAILY melatonin 10 mg Tablet 10 mg PO BEDTIME folic acid 1 mg tablet 1 tab PO DAILY Renal Caps 1 mg capsule 1 cap PO DAILY metoprolol succinate 50 mg tablet extended release 24 hr 50 mg PO DAILY sevelamer carbonate 800 mg tablet 1,600 mg PO BIDWM@0800,1200 Rx Instructions: breakfast and lunch sevelamer carbonate 800 mg tablet 2,400 mg PO DAILY@1800 Rx Instructions: with dinner Discharge Orders: Discharge Order (Routine); Ordered 01/14/24 Ordered By: Alexys Donohue Diet: Advance to usual diet Activity on Discharge: As tolerated Stand Alone Forms: Patient Portal Discharge page Print Language: German Care Plan Goals: Patient was admitted Hypoxemic respiratory failure likely due to fluid overload in the setting of end-stage renal disease-chest x-ray shows fluid overload vs bibasilar opacities(? atelectasis ): patient was given bumex,lasix ,ceftriaxone ,bipap in ED-seems improving ,also got HD and received bipap in ed -seems sob feeling improving ,in addition patient recently treated for pneumonia in [facility] -has leucocytosis again ,mild changes in cxr ( more likely fluid overload , but also has bibasilar opacities ) ,blood cultures sent by Ed pending ,no fevers -we will add vanco /zosyn for question of atelactasis vs pneumonia ( considering recent hospital admission,leucocytosis ,cxr bibasilar changes ), please repeat cxr and cbc in am ,follow blood cultures x2 growing Gram-positive cocci in chains . Patient is currently on vanco and Zosyn, patient was given 2 g vanco loading dose, for further vanco dosing can be done as per vanco levels in [facility] because he requires hemodialysis. Tachycardia,tachypnea ,acute lactic acidosis resolved and due to fluid overload sec to esrd ,not sepsis. Nsemti: denies any chest pain,trop is [id number] -received lovenox therapeutic dose ( which we will fine for 24 hours since has esrd ) then switch to heparin drip tomorrow( on 01/15/24 at 5 am ),continue asa,statin,bb. moniter cbc ,bmp and pt/ptt once heparin started. Health Concerns: as above. Plan of Treatment: as above. Assessment: as above.
[2024-01-14 13:35] LABS: PTT Heparin Drip 33.6 SEC (53-77.9)
[2024-01-14 13:46] LABS: Procalcitonin 10.13 ng/mL
[2024-01-14] MEDS: vancomycin/NS 2,000 MG/500 ML PLAST..BAG 250 MG IV (14:02)
--- NOTE | 2024-01-14 14:02 | MHC.EDTECH ---
@[id number] [facility] W/ROOM ASSIGNMENT AND ACCEPTING MD JHOANA MUTUAL 7, ROOM 19 RN TO RN: [phone] ACCEPTING MD: DR FOSS
--- NOTE | 2024-01-14 14:45 | MHC.EDTECH ---
@0848 [facility]BI CALLED FOR ALS TX TO [facility] DAVID ANSWERS AND GIVES WITHIN THE HOUR FOR ETA
--- NOTE | 2024-01-14 14:48 | PC.NURSE ---
zoysn not given, Provider Donohue aware.
--- NOTE | 2024-01-14 14:50 | PC.NURSE ---
nursing reporting given to Ana RN at [facility] at [facility] [place] at this time
== END 2024-01-14 15:42 | disposition short-term general hospital (02) | DRG 280 ==
LOC: HO.ED 02:48 → HO.EDOVER 04:57 → HO.S3 07:49 → HO.EDOVER 07:52
PROVIDERS: Admitting Provider Internal Medicine; Emergency Provider Internal Medicine; PCP Internal Medicine; Visit Provider Internal Medicine
DX: I21.4 Non-ST elevation (NSTEMI) myocardial infarction (principal); J96.01 Acute respiratory failure with hypoxia; I12.0 Hypertensive chronic kidney disease with stage 5 chronic kidney disease or end stage renal disease; J98.11 Atelectasis; Z68.41 Body mass index [BMI] 40.0-44.9, adult; R65.10 Systemic inflammatory response syndrome (SIRS) of non-infectious origin without acute organ dysfunction; I44.7 Left bundle-branch block, unspecified; M10.9 Gout, unspecified; E78.5 Hyperlipidemia, unspecified; E66.9 Obesity, unspecified; G47.33 Obstructive sleep apnea (adult) (pediatric); I25.10 Atherosclerotic heart disease of native coronary artery without angina pectoris; Z20.822 Contact with and (suspected) exposure to COVID-19; Z99.2 Dependence on renal dialysis; Z87.891 Personal history of nicotine dependence; Z79.82 Long term (current) use of aspirin; Z79.899 Other long term (current) drug therapy
CPT/HCPCS: 0241U; 36415; 71045; 80053; 82803; 82947; 83605; 83735; 83880; 84145; 84484; 85025; 85027; 85610; 85730; 87040; 87077; 87186; 87205; 90999; 93005; 99285; J0696; J1650; J1939; J1940; J2543; J3370

== ENCOUNTER → 2024-01-14 04:49 | Outpatient (BNV) | payer MEDICARE, SELFPAY | PROVIDERS: Admitting Provider Internal Medicine; Emergency Provider Internal Medicine; PCP Internal Medicine; Visit Provider Internal Medicine | DX: I21.4 Non-ST elevation (NSTEMI) myocardial infarction (principal); J96.01 Acute respiratory failure with hypoxia; N18.6 End stage renal disease; I50.1 Left ventricular failure, unspecified; E87.70 Fluid overload, unspecified; R79.89 Other specified abnormal findings of blood chemistry | CPT/HCPCS: 99236 ==

== ENCOUNTER → 2024-01-14 04:49 | Outpatient (BNV) | payer MEDICARE, SELFPAY | PROVIDERS: Admitting Provider Internal Medicine; Emergency Provider Internal Medicine; PCP Internal Medicine; Visit Provider Internal Medicine | DX: I21.4 Non-ST elevation (NSTEMI) myocardial infarction (principal); J96.01 Acute respiratory failure with hypoxia; N18.6 End stage renal disease; I50.1 Left ventricular failure, unspecified; R06.02 Shortness of breath; R00.0 Tachycardia, unspecified; I44.7 Left bundle-branch block, unspecified | CPT/HCPCS: 93010; 99223 ==

== ENCOUNTER 2024-02-06 21:33 | Emergency (ER) | payer MEDICARE, SELFPAY ==
[2024-02-06] VITALS (15 sets, daily range): BP systolic 141–191; BP diastolic 53–78; PULSE 99–149; RESP 15–41; TEMP 32.4–38.3; O2SAT 86–100; BMI 38.4
--- NOTE | ~2024-02-06 | XR_ITS ---
EXAMINATION: XR CHEST CLINICAL INFORMATION: Shortness of breath. Question CHF. COMPARISON: 01/14/2024 TECHNIQUE: Frontal view of the chest was obtained. FINDINGS: Cardiac silhouette is within normal limits in size. Mild pulmonary venous congestion. Opacities in the lung bases and perihilar regions. Mild lower lobe predominant interstitial opacities. No pneumothorax. No acute osseous findings. XR/XR chest 1V IMPRESSION: Mild pulmonary venous congestion and interstitial opacities, most likely due to pulmonary edema. Patchy airspace opacities in the lung bases bilaterally raise the possibility of multifocal pneumonia or early alveolar edema..
--- NOTE | ~2024-02-06 | XR_ITS ---
EXAMINATION: XR CHEST CLINICAL INFORMATION: Patient COMPARISON: Chest x-ray January 29, 2024, 10:07 PM TECHNIQUE: Frontal portable view of the chest was obtained. 2302 hours FINDINGS: Tubes and lines: 1. Endotracheal tube catheter 6 cm above the mary. 2. Enteric catheter tip passes just below the diaphragm. The sidehole remains in the distal esophagus. Catheter could be advanced 10 cm. Extensive bilateral patchy airspace opacities similar in severity to prior chest x-ray. XR/XR chest 1V IMPRESSION: 1. Endotracheal tube catheter 6 cm above the mary. 2. Enteric catheter tip passes just below the diaphragm. The sidehole remains in the distal esophagus. Catheter could be advanced 10 cm. 3. Extensive bilateral patchy airspace opacities remain unchanged since prior study..
--- NOTE | ~2024-02-06 | CT_ITS ---
EXAMINATION: CT CHEST WITHOUT CONTRAST CLINICAL INFORMATION: Hypoxia COMPARISON: None available. TECHNIQUE: Multidetector volumetric CT imaging of the chest was done. Axial MIP volume rendering provided. Sagittal and coronal reformatted images were obtained. This CT examination was performed using dose optimization techniques as appropriate, variously including the following: *Automated exposure control *Adjustment of mA and/or kV according to patient size (this includes techniques or standardized protocols for targeted exams where dose is matched to indication/reason for exam; i.e. extremities or head) *Use of iterative reconstruction technique DLP: 494 mGy-cm FINDINGS: LUNGS: Endotracheal tube tip lies approximately 2 cm above the mary. Limited detailed evaluation due to respiratory motion artifact. There are relatively symmetric regions of bilateral groundglass opacity with some interspersed denser consolidation such as in the right middle lobe. Mild interlobular septal thickening is also noted. Dependent atelectasis in the posterior lower lobes. MEDIASTINUM: The visualized thyroid gland is unremarkable. Multiple scattered lymph nodes throughout the mediastinum, measuring up to approximately 1.3 cm in the right paratracheal region. A few additional lymph nodes appear at the upper limits of normal in size, and overall these may be reactive to the pulmonary pathology. Mild cardiomegaly without pericardial effusion. Ascending aorta measures approximately 3.9 cm in diameter. There is atherosclerotic calcification along the aorta. CORONARY ARTERY CALCIFICATION: Present PLEURA: Trace pleural effusions. No pneumothorax. AXILLA: No lymphadenopathy. UPPER ABDOMEN: Enteric tube terminates in the stomach. Partially imaged kidneys appear atrophic. Hyperdense mid left renal lesion measuring up to approximately 2 cm appears without significant change from CT abdomen 09/27/2021, favoring a hyperdense cyst. Thickened appearance of the adrenal glands again demonstrated, left greater than right. OSSEOUS STRUCTURES: There are changes of diffuse idiopathic skeletal hyperostosis in the spine. CT/CT chest wo IV con IMPRESSION: 1. Relatively symmetric regions of bilateral groundglass opacity with some interspersed denser consolidation. Overall appearance is favored to represent pulmonary edema, though superimposed infection in the right lung would be difficult to entirely exclude in the proper clinical setting. 2. Mild cardiomegaly. 3. Trace pleural effusions. 4. Mediastinal lymphadenopathy, which may be reactive to the pulmonary pathology. 5. Hyperdense left renal lesion measuring up to approximately 2 cm, without significant change from 09/27/2021, favoring a hyperdense cyst. This may be further assessed with nonemergent renal ultrasound. 6. Coronary artery calcifications. Correlation with cardiac risk factors is recommended.
--- NOTE | 2024-02-06 21:48 | ECG_ITS ---
Test Reason : sob Blood Pressure : / mmHG Vent. Rate : 144 BPM Atrial Rate : 144 BPM P-R Int : 134 ms QRS Dur : 114 ms QT Int : 280 ms P-R-T Axes : 044 -22 104 degrees QTc Int : 433 ms Sinus tachycardia Incomplete left bundle branch block ST & T wave abnormality, consider lateral ischemia Abnormal ECG When compared with ECG of 14-JAN-2024 05:25, Increase in ventricular rate Referred By: Natalie Randhawa Electronically Signed By:AUDRA JUAREZ
[2024-02-06] MEDS: Nitroglycerin 2 % Oint 1 GM Packet 1 INCH TRANSDERMA (21:53)
[2024-02-06] MEDS: Furosemide 100 MG/10 ML VIAL 80 MG IVPUSH (21:53)
[2024-02-06 21:58] LABS: MANUAL DIFF FLAG NO
[2024-02-06 21:59] LABS: Basophils Percent Auto 0.3 % (0-2); Eosinophils Absolute Auto 0.1 X10*3/uL (0.0-0.4); Eosinophils Percent Auto 1.1 % (0-4); Hematocrit 26.8 % (42.0-52.0); Hemoglobin 8.5 g/dl (14.0-18.0); Imm Gran Abs Auto 0.08 X10*3/uL (0.00-0.03); Imm Gran Pct Auto 0.7 % (0.0-0.4); Lymphocytes Absolute Auto 2.4 X10*3/uL (1.2-4.9); Lymphocytes Percent Auto 21.5 % (20-40); Mean Corpuscular HGB Conc 31.7 g/dl (31.0-36.0); Mean Corpuscular Hemoglobin 33.5 pg (27.0-33.0); Mean Corpuscular Volume 105.5 fL (80.0-98.0); Mean Platelet Volume 9.8 fL (9.4-12.4); Monocytes Absolute Auto 0.5 X10*3/uL (0.1-1.2); Monocytes Percent Auto 4.9 % (2-11); Neutrophils Percent Auto 71.5 % (45-73); Platelet Count 324 X10*3/uL (160-400); Red Blood Count 2.54 X10*6/uL (4.60-5.80); Red Cell Distribution Width 17.2 % (11.0-16.0); White Blood Count 11.1 X10*3/uL (4.8-10.8)
[2024-02-06 22:03] LABS: VBG Base Excess 0.6 mmol/L; VBG HCO3 29 mmol/L (22-26); VBG pCO2 69 mmHg; VBG pH 7.23 (7.32-7.43); VBG pO2 48 mmHg
[2024-02-06 22:03] LABS: Venous Blood Gas Refer to POC result
[2024-02-06 22:09] LABS: INTERNATIONAL NORM RATIO 1.1 (0.9-1.1); Prothrombin Time 13.7 SEC (11.1-13.3)
[2024-02-06 22:13] LABS: Lactic Acid 4.5 mmol/L (0.5-2.0)
[2024-02-06 22:18] LABS: B Type Natriuretic Peptide 3870 pg/mL (<100)
[2024-02-06] MEDS: propofoL 1,000 MG/100 ML VIAL 21.24 MG IVCONT (22:28)
[2024-02-06] MEDS: Etomidate 20 MG/10 ML VIAL IVPUSH (22:29)
[2024-02-06] MEDS: Rocuronium Bromide 50 MG/5 ML VIAL 100 MG IVPUSH (22:29)
[2024-02-06 22:36] LABS: Alanine Aminotransferase 18 U/L (0-40); Albumin Level 4.2 g/dL (3.5-5.0); Alkaline Phosphatase 61 U/L (39-117); Aspartate Amino Transferase 15 U/L (5-37); Bilirubin Direct 0.2 mg/dL (0.0-0.5); Bilirubin Total 0.6 mg/dL (0.0-1.0); Glucose Random 323 mg/dL (60-115); Total Protein 7.5 g/dL (6.5-8.0)
[2024-02-06 22:37] LABS: Anion Gap 20 (12-20); Blood Urea Nitrogen 41 mg/dL (9-16); Carbon Dioxide 27 mmol/L (22-29); Chloride 95 mmol/L (96-108); Magnesium 2.3 mg/dL (1.6-2.6); Potassium 4.4 mmol/L (3.3-5.1); Sodium 138 mmol/L (135-145)
[2024-02-06 22:41] LABS: Troponin-I High Sensitivity 133.1 ng/L (<3.5-35.0)
[2024-02-06 22:42] LABS: Creatinine Clr Calc Pharmacy 10.4; Estimated Glomerular Filt Rate 6
[2024-02-06 22:51] LABS: COVID-19 Test Negative (Negative); IDNOW Serial# 08D9AD1C; IDNOW Serial# 152EDE1D; Influenza A Negative (Negative); Influenza B2 Negative (Negative)
[2024-02-06] MEDS: cefTRIAXone sodium 1 GM in 0.9 % Sodium Chloride 50 ML IV (23:06)
--- NOTE | 2024-02-06 23:47 | ED_ITS ---
HPI - SOB/Dyspnea General Chief Complaint: Dyspnea Stated Complaint: DIFF BREATHING Time Seen by Provider: 02/06/24 21:39 Source: EMS Mode of arrival: EMS Limitations: other History of Present Illness ED Provider: Dr. Natalie Randhawa HPI Narrative: Patient comes to the emergency room via EMS. According to EMS, patient called for shortness of breath that started 3 hours prior to the 911 call. The paramedics report that the patient was saturating in the low 80s, patient was put on CPAP. Oxygen saturation briefly started improving. However, patient lost consciousness, and patient had to be ventilated via Ambu bag. When patient arrived, patient was conscious, seems fatigue. Patient complaining of severe shortness of breath. Patient states that yesterday he had dialysis. Patient was put on BiPAP, but patient complained that he was not breathing well, patient started loss of consciousness. Patient was intubated a few minutes after arrival to the ED Related Data Home Medications ?Medication ?Instructions ?Recorded ?Confirmed allopurinol 100 mg tablet 2 tab PO DAILY@1200 06/15/22 01/14/24 aspirin 81 mg tablet,delayed 81 mg PO DAILY 06/15/22 01/14/24 release atorvastatin 80 mg tablet 1 tab PO BEDTIME 06/15/22 01/14/24 cholecalciferol (vitamin D3) 50 50 mcg PO DAILY 06/15/22 01/14/24 mcg (2,000 unit) capsule (Vitamin D3) cyanocobalamin (vitamin B-12) 1,000 mcg PO DAILY 06/15/22 01/14/24 1,000 mcg tablet (Vitamin B-12) fluticasone propionate 50 1 spray intranasal BEDTIME 06/15/22 01/14/24 mcg/actuation nasal spray,suspension furosemide 80 mg tablet 80 mg PO DAILY 06/15/22 01/14/24 gabapentin 100 mg capsule 1 cap PO BEDTIME nerve pain 06/15/22 01/14/24 losartan 50 mg tablet 50 mg PO DAILY 06/15/22 01/14/24 melatonin 10 mg tablet 10 mg PO BEDTIME 06/15/22 01/14/24 omega-3 fatty acids-fish oil 684 1 cap PO DAILY 06/15/22 01/14/24 mg-1,200 mg capsule,delayed release omeprazole 20 mg tablet,delayed 20 mg PO BID 06/15/22 01/14/24 release folic acid 1 mg tablet 1 tab PO DAILY 06/16/22 01/14/24 vitamin B complex and vitamin C 1 cap PO DAILY 06/16/22 01/14/24 no.20-folic acid 1 mg capsule (Renal Caps) metoprolol succinate 50 mg 50 mg PO DAILY 01/14/24 01/14/24 tablet,extended release 24 hr sevelamer carbonate 800 mg tablet 1,600 mg PO BIDWM@0800,1200 01/14/24 01/14/24 sevelamer carbonate 800 mg tablet 2,400 mg PO DAILY@1800 01/14/24 01/14/24 Previous Rx's ?Medication ?Instructions ?Recorded heparin (porcine) 25,000 unit/250 25,000 unit (250 mL) continuous IV 01/14/24 mL in 0.45 % sodium chloride IV infusion .Q0M #1 mL soln piperacillin-tazobactam 3.375 gram 2.25 g IV Q8H #1 ea 01/14/24 intravenous solution Allergies Allergy/AdvReac Type Severity Reaction Status Date / Time ibuprofen [From Motrin] Allergy Intermediate Itching Verified 02/06/24 22:08 Review of Systems 2 Review of Systems: Yes Unobtainable due to mental condition [facility] Past Medical History Medical History Difficulty swallowing Venous insufficiency CVA (cerebral vascular accident) Myocardial infarction CAD (coronary artery disease) Thoracic aortic aneurysm Cervical herniated disc Hemodialysis patient Renal failure Carotid stenosis Depression Elevated cholesterol Peripheral neuropathy Gout Arthritis Anemia Hypertension Diabetes Chronic kidney disease (CKD) Sleep apnea Surgical History History of esophagogastroduodenoscopy (EGD) H/O colonoscopy Hx of coronary angioplasty Social History Social History Are you a primary career development associate to a significant other at home: No Do you presently have visiting nurse or other home services: No Patient Tobacco Use Status: Former Tobacco user Quit Date: Tobacco use type: Cigarette Advance Directives: No Advance Directives Information Provided: No Do you have a plan to hurt others: No Plan Physical Exam 2 Vital Signs: Vital Signs: Last Vital Signs Temp 99.5 F 02/07/24 02:22 Pulse 75 02/07/24 02:37 Resp 17 02/07/24 02:22 BP 153/68 H 02/07/24 02:37 Pulse Ox 97 02/07/24 02:22 O2 Del Method Mechanical Ventil ation 02/07/24 02:22 FiO2 45 02/07/24 00:29 BMI result Body Mass Index 38.4 Const: Other: Appearance: Awake but almost unconscious Eyes: Pupils equal, round and reactive to light. ENT: Pharynx normal. Neck: Normal inspection. Neck supple. No lymph nodes noted. No crepitus CVS: Tachycardic Respiratory: [place] distress, bilateral crackles Abdomen: Soft and nontender. No rigidity. No distention. Skin: Skin warm and diaphoretic Extremities: +1 pitting edema bilaterally Neuro: Unable to participate in cranial nerve assessment Psych: In respiratory distress Medications Administered Generic Name Dose Route Start Last Admin Trade Name Freq PRN Reason Stop Dose Admin Propofol 1,000 mg in 100 mls @ 0 mls/hr 02/06/24 22:15 02/07/24 02:02 Diprivan IVCONT 50 mcg/kg/min .Q0M FIFI 35.4 mls/hr Administration Protocol Per Protocol Furosemide 200 mg/ Sodium 100 mls @ 2.5 mls/hr 02/07/24 00:45 02/07/24 02:17 Chloride IVCONT 5 mg/hr .Q24H FIFI 2.5 mls/hr Administration 5 MG/HR Norepinephrine Bitartrate 8 mg in 250 mls @ 0 mls/hr 02/07/24 01:45 02/07/24 02:37 Levophed IV 0 mcg/kg/min .Q0M FIFI 0 mls/hr Titration Protocol Per Protocol Discontinued Medications Generic Name Dose Route Start Last Admin Trade Name Freq PRN Reason Stop Dose Admin Acetaminophen 650 mg 02/06/24 23:45 02/07/24 00:01 Acetaminophen Supp 650 Mg Supp.Rect SC 02/06/24 23:46 650 mg ONCE ONE Administration Etomidate 20 mg 02/06/24 22:15 02/06/24 22:29 Etomidate 20 Mg/10 Ml Vial IVPUSH 02/06/24 22:16 20 mg NOW STA Administration Furosemide 80 mg 02/06/24 21:39 02/06/24 21:53 Furosemide 100 Mg/10 Ml Vial IVPUSH 02/06/24 21:40 80 mg ONCE ONE Administration Protocol Ceftriaxone Sodium 1 gm/ 50 mls @ 100 mls/hr 02/06/24 23:03 02/06/24 23:06 Sodium Chloride IV 02/06/24 23:32 100 mls/hr ONCE ONE Administration Vancomycin HCl 2,000 mg in 500 mls @ 250 mls/hr 02/06/24 23:32 02/06/24 23:55 Vancomycin/Ns IV 02/07/24 01:31 250 mls/hr ONCE ONE Administration Sodium Chloride 150 mls @ 999 mls/hr 02/06/24 23:37 02/07/24 00:01 Ns IVCONT 02/06/24 23:46 999 mls/hr .Q10M ONE Administration Midazolam HCl 2 mg 02/07/24 01:12 02/07/24 01:16 Midazolam Hcl/Pf 2 Mg/2 Ml Vial IVPUSH 02/07/24 01:13 2 mg ONCE ONE Administration Nitroglycerin 1 inch 02/06/24 21:39 02/06/24 21:53 Nitroglycerin 2 % Oint 1 Gm Packet TRANSDERMA 02/06/24 21:40 1 inch ONCE ONE Administration Rocuronium [place] 100 mg 02/06/24 22:15 02/06/24 22:29 Rocuronium [place] 50 Mg/5 Ml Vial IVPUSH 02/06/24 22:16 100 mg ONCE ONE Administration Medical Decision Making Medical Decision Making MDM Narrative: -on arrival to the emergency room, patient's blood pressure 191/77, bilateral crackles, in respiratory distress. Patient likely in pulmonary edema -nitroglycerin ointment was applied, patient was given Lasix 80 mg, started on BiPAP. -patient was awake but struggling to breathe. Patient started losing consciousness, patient was immediately intubated. -my interpretation of labs: White blood cell count 11.1, patient has chronic anemia. PCO2 a bit elevated 69, bicarb 29, chronic. Patient's BUN and creatinine 41/8.66 which is patient's baseline. -patient's lactic acid 4.5, likely secondary to prolonged hypoxia from CHF exacerbation. Not from sepsis. -it is likely that patient may have aspirated when he was being ventilated by paramedics EN route to the hospital. Patient was empirically treated with IV antibiotics. Patient was empirically giving a small dose of fluid 150 mL bolus. However, patient is in CHF exacerbation and no more fluids will be given since it would deteriorate patient even further -my interpretation of chest x-ray: Cardiomegaly and pulmonary edema. Per Radiology report: Pneumonia versus alveolar edema. As mentioned above, patient was empirically treated with IV antibiotics. -patient's blood pressure on the higher side, no episodes of hypotension. Respiratory distress secondary to pulmonary edema/flash pulmonary edema. -I discussed the patient with Dr. Alexander 23:45, patient being admitted to the ICU -at 02:15, I was informed by the ICU that they do in circumstances and the floor, and ICU admissions, they no longer have a bed for the patient. -also, patient's blood pressure dropped to the high 80s systolic due to propofol, patient was started on Levophed, currently at the lowest dose, last blood pressure 117/55, heart rate 77. -bend settings: VT 420, respiratory rate 16, FiO2 45%, peep 10 -we tried calling our local hospitals including [facility], [facility], [facility], all close for medical ICU transfers -we will get in touch with [place] -I discussed the patient with line transfer of [facility]. Call back from ICU pending. -sign-out given to my colleague Dr. Seaman -radiology is up loading the images to their system and burning a CD which will be traveling with the patient -under primary contacts, Analisa Correa, pt's spouse was contacted ), I discussed with her the patient's condition and the we need to transfer him out of state to [place], she is agreeable. Differential Diagnosis Differential Diagnoses: The differential diagnosis associated with the presentation includes (CHF, flash pulmonary edema, pneumonia) Admission/Observation Consideration of admission/observation: Escalation of care including admission/observation considered Consult Healthcare Provider Management of the patient was discussed with: Nurse Assistant Lab Data [facility] Lab Attestation statement: I reviewed the patient's lab results. 02/06/24 21:53 02/06/24 21:53 Labs: Lab Results 02/06/24 02/06/24 02/06/24 Range/Units 21:53 21:55 22:00 WBC 11.1 H (4.8-10.8) X10*3/uL RBC 2.54 L (4.60-5.80) X10*6/uL Hgb 8.5 L (14.0-18.0) g/dl Hct 26.8 L (42.0-52.0) % MCV 105.5 H (80.0-98.0) fL MCH 33.5 H (27.0-33.0) pg MCHC 31.7 (31.0-36.0) g/dl RDW 17.2 H (11.0-16.0) % Plt Count 324 D (160-400) X10*3/uL MPV 9.8 (9.4-12.4) fL Immature Gran % (Auto) 0.7 H (0.0-0.4) % Neut % (Auto) 71.5 (45-73) % Lymph % (Auto) 21.5 (20-40) % [place] % (Auto) 4.9 (2-11) % Eos % (Auto) 1.1 (0-4) % Baso % (Auto) 0.3 (0-2) % Lymph # (Auto) 2.4 (1.2-4.9) X10*3/uL [place] # (Auto) 0.5 (0.1-1.2) X10*3/uL Eos # (Auto) 0.1 (0.0-0.4) X10*3/uL Baso # (Auto) 0.0 (0.0-0.2) X10*3/uL Abs Immat Gran (auto) 0.08 H (0.00-0.03) X10*3/uL Absolute Neuts (auto) 8.0 (2.0-8.3) x10*3/uL Absolute Nucleated RBC 0.000 (0.0-0.012) X10*3/uL Nucleated RBC % (auto) 0.0 (0.0-0.2) /100WBC PT 13.7 H (11.1-13.3) SEC INR 1.1 (0.9-1.1) VBG pH 7.23 L (7.32-7.43) VBG pCO2 69 mmHg VBG pO2 48 mmHg VBG HCO3 29 H (22-26) mmol/L VBG O2 Saturation 70.0 % VBG Base Excess 0.6 mmol/L Sodium 138 (135-145) mmol/L Potassium 4.4 (3.3-5.1) mmol/L Chloride 95 L (96-108) mmol/L Carbon Dioxide 27 (22-29) mmol/L Anion Gap 20 (12-20) BUN 41 H (9-16) mg/dL Creatinine 8.66 H* (0.5-1.4) mg/dL Estim Creat Clear Calc 10.4 Estimated GFR 6 Random Glucose 323 H (60-115) mg/dL Lactic Acid 4.5 H* (0.5-2.0) mmol/L Lactic Acid F/U @ 2Hr (0.5-2.0) mmol/L Calcium 10.0 (8.4-10.2) mg/dL Phosphorus (2.7-4.5) mg/dL Magnesium 2.3 (1.6-2.6) mg/dL Total Bilirubin 0.6 (0.0-1.0) mg/dL Direct Bilirubin 0.2 (0.0-0.5) mg/dL AST 15 (5-37) U/L ALT 18 (0-40) U/L Alkaline Phosphatase 61 (39-117) U/L Troponin I High Sens 133.1 H* D (<3.5-35.0) ng/L B-Natriuretic Peptide 3870 H (<100) pg/mL Total Protein 7.5 (6.5-8.0) g/dL Albumin 4.2 (3.5-5.0) g/dL COVID-19 (MARYJANE) Negative (Negative) COVID-19 Clin Com See Note Influenza Type A (SIMBA) Negative (Negative) Influenza Type B (SIMBA) Negative (Negative) Influenza A & B Note See Note 02/07/24 02/07/24 Range/Units 00:28 00:34 WBC (4.8-10.8) X10*3/uL RBC (4.60-5.80) X10*6/uL Hgb (14.0-18.0) g/dl Hct (42.0-52.0) % MCV (80.0-98.0) fL MCH (27.0-33.0) pg MCHC (31.0-36.0) g/dl RDW (11.0-16.0) % Plt Count (160-400) X10*3/uL MPV (9.4-12.4) fL Immature Gran % (Auto) (0.0-0.4) % Neut % (Auto) (45-73) % Lymph % (Auto) (20-40) % [place] % (Auto) (2-11) % Eos % (Auto) (0-4) % Baso % (Auto) (0-2) % Lymph # (Auto) (1.2-4.9) X10*3/uL [place] # (Auto) (0.1-1.2) X10*3/uL Eos # (Auto) (0.0-0.4) X10*3/uL Baso # (Auto) (0.0-0.2) X10*3/uL Abs Immat Gran (auto) (0.00-0.03) X10*3/uL Absolute Neuts (auto) (2.0-8.3) x10*3/uL Absolute Nucleated RBC (0.0-0.012) X10*3/uL Nucleated RBC % (auto) (0.0-0.2) /100WBC PT (11.1-13.3) SEC INR (0.9-1.1) VBG pH 7.53 H (7.32-7.43) VBG pCO2 35 mmHg VBG pO2 172 mmHg VBG HCO3 30 H (22-26) mmol/L VBG O2 Saturation 99.0 % VBG Base Excess 7.3 mmol/L Sodium (135-145) mmol/L Potassium (3.3-5.1) mmol/L Chloride (96-108) mmol/L Carbon Dioxide (22-29) mmol/L Anion Gap (12-20) BUN (9-16) mg/dL Creatinine (0.5-1.4) mg/dL Estim Creat Clear Calc Estimated GFR Random Glucose (60-115) mg/dL Lactic Acid (0.5-2.0) mmol/L Lactic Acid F/U @ 2Hr 1.7 (0.5-2.0) mmol/L Calcium (8.4-10.2) mg/dL Phosphorus 4.4 (2.7-4.5) mg/dL Magnesium (1.6-2.6) mg/dL Total Bilirubin (0.0-1.0) mg/dL Direct Bilirubin (0.0-0.5) mg/dL AST (5-37) U/L ALT (0-40) U/L Alkaline Phosphatase (39-117) U/L Troponin I High Sens 327.8 H* D (<3.5-35.0) ng/L B-Natriuretic Peptide (<100) pg/mL Total Protein (6.5-8.0) g/dL Albumin (3.5-5.0) g/dL COVID-19 (MARYJANE) (Negative) COVID-19 Clin Com Influenza Type A (SIMBA) (Negative) Influenza Type B (SIMBA) (Negative) Influenza A & B Note Independent Interpretation I performed an independent interpretation of an: Plain X-Ray Radiology Impression Discussion of test interpretation with radiology: I have reviewed the radiologist's reading. Radiologist Impression: Mild pulmonary venous congestion and interstitial opacities, most likely due to pulmonary edema. Patchy airspace opacities in the lung bases bilaterally raise the possibility of multifocal pneumonia or early alveolar edema.. FINDINGS: Tubes and lines: 1. Endotracheal tube catheter 6 cm above the mary. 2. Enteric catheter tip passes just below the diaphragm. The sidehole remains in the distal esophagus. Catheter could be advanced 10 cm. Extensive bilateral patchy airspace opacities similar in severity to prior chest x-ray. XR/XR chest 1V IMPRESSION: 1. Endotracheal tube catheter 6 cm above the mary. 2. Enteric catheter tip passes just below the diaphragm. The sidehole remains in the distal esophagus. Catheter could be advanced 10 cm. 3. Extensive bilateral patchy airspace opacities remain unchanged since prior study.. Procedures Intubation Intubation Type:: Endotracheal Tube Insertion Intubation Date:: 02/06/24 Intubation Time:: 22:15 Time out performed: Yes sedative: Etomidate Mg Given: 20 paralytic: Rocuronium Mg Given: 100 Laryngoscope: other (GlideScope) ET Tube Size: 8 ET Tube Uncuffed: No Tube Secured Depth (cm): 25 Tube Secured Location: lips Tube Placement Confirmation: visualized tube passing through cords, equal breath sounds bilaterally, no breath sounds over epigastrium and confirmation by capnometry Patient Tolerated Procedure: well and no complications Intubation Complications: none Critical Care Time Critical Care Time Critical Care Time: Yes Total Critical Care Time: 120 Attestation: I have personally provided critical care time. Time includes review of lab data, radiology results, discussion with consultants, and monitoring for potential decompensation. Intervention performed as documented. Discharge Plan Discharge Clinical Impression: Pulmonary edema, Hypoxic respiratory failure, Pneumonia Patient Disposition: Admitted As Inpatient Print Language: Gabonese
--- NOTE | 2024-02-06 23:54 | P.HPCC_ITS ---
History of Present Illness Date of Service: 02/06/24 Attending physician on admission: Saud Alexander Chief Complaint: Dyspnea PMFSH Past Medical History Medical History Difficulty swallowing Venous insufficiency CVA (cerebral vascular accident) Myocardial infarction CAD (coronary artery disease) Thoracic aortic aneurysm Cervical herniated disc Hemodialysis patient Renal failure Carotid stenosis Depression Elevated cholesterol Peripheral neuropathy Gout Arthritis Anemia Hypertension Diabetes Chronic kidney disease (CKD) Sleep apnea Surgical History Surgical History History of esophagogastroduodenoscopy (EGD) H/O colonoscopy Hx of coronary angioplasty Social History Social History Are you a primary clinical manager home care to a significant other at home: No Do you presently have visiting nurse or other home services: No Patient Tobacco Use Status: Former Tobacco user Quit Date: Tobacco use type: Cigarette Advance Directives: No Advance Directives Information Provided: No Do you have a plan to hurt others: No Plan Meds Allergies Allergy/AdvReac Type Severity Reaction Status Date / Time ibuprofen [From Motrin] Allergy Intermediate Itching Verified 02/06/24 22:08 Active Medications: Current Medications Chlorhexidine Gluconate (Chlorhexidine Gluc Oral Rinse 15 Ml Mouthwash) 15 ml BUCCAL TID FIFI Heparin Sodium (Porcine) (Heparin Sodium,Porcine 5,000 Unit/Ml Vial) 5,000 unit SUBCUT TID FIFI Propofol (Diprivan) 1,000 mg in 100 mls @ 0 mls/hr IVCONT .Q0M [facility]; Protocol Last Titration: 02/06/24 22:34 Dose: 40 mcg/kg/min, 28.32 mls/hr Vancomycin HCl (Vancomycin/Ns) 2,000 mg in 500 mls @ 250 mls/hr IV ONCE ONE Stop: 02/07/24 01:31 Pantoprazole Sodium (Pantoprazole Sodium 40 Mg/10 Ml Vial) 40 mg IVPUSH DAILY ONE Stop: 02/07/24 06:31 Pharmacy Consult (Consult Rx Vancomycin Dosing) 1 each MISCELLANE DAILY PRN PRN Reason: Consult order Home Medications ?Medication ?Instructions ?Recorded ?Confirmed ?Last Taken ?Type allopurinol 100 mg tablet 2 tab PO DAILY@1200 10/05/22 05/05/24 Unknown History aspirin 81 mg tablet,delayed 81 mg PO DAILY 06/15/22 01/14/24 01/13/24 History release atorvastatin 80 mg tablet 1 tab PO BEDTIME 06/15/22 01/14/24 Unknown History cholecalciferol (vitamin D3) 50 50 mcg PO DAILY 06/15/22 01/14/24 01/13/24 History mcg (2,000 unit) capsule (Vitamin D3) cyanocobalamin (vitamin B-12) 1,000 mcg PO DAILY 06/15/22 01/14/24 01/13/24 History 1,000 mcg tablet (Vitamin B-12) fluticasone propionate 50 1 spray intranasal BEDTIME 06/15/22 01/14/24 Unknown History mcg/actuation nasal spray,suspension furosemide 80 mg tablet 80 mg PO DAILY 06/15/22 01/14/24 01/13/24 History gabapentin 100 mg capsule 1 cap PO BEDTIME nerve pain 06/15/22 01/14/24 Unknown History losartan 50 mg tablet 50 mg PO DAILY 06/15/22 01/14/24 01/13/24 History melatonin 10 mg tablet 10 mg PO BEDTIME 06/15/22 01/14/24 Unknown History omega-3 fatty acids-fish oil 684 1 cap PO DAILY 06/15/22 01/14/24 01/13/24 History mg-1,200 mg capsule,delayed release omeprazole 20 mg tablet,delayed 20 mg PO BID 06/15/22 01/14/24 01/13/24 History release folic acid 1 mg tablet 1 tab PO DAILY 06/16/22 01/14/24 01/13/24 History vitamin B complex and vitamin C 1 cap PO DAILY 06/16/22 01/14/24 01/13/24 History no.20-folic acid 1 mg capsule (Renal Caps) metoprolol succinate 50 mg 50 mg PO DAILY 01/14/24 01/14/24 01/13/24 History tablet,extended release 24 hr sevelamer carbonate 800 mg tablet 1,600 mg PO BIDWM@0800,1200 01/14/24 01/14/24 01/13/24 History sevelamer carbonate 800 mg tablet 2,400 mg PO DAILY@1800 01/14/24 01/14/24 Unknown History Physical Exam 2 Vital Signs: Vital Signs: Last Vital Signs Temp 101 F H 02/06/24 23:38 Pulse 121 H 02/06/24 23:38 Resp 16 02/06/24 23:38 BP 141/61 H 02/06/24 23:38 Pulse Ox 93 02/06/24 23:38 O2 Del Method Mechanical Ventil ation 02/06/24 23:38 FiO2 45 02/06/24 23:04 BMI result Body Mass Index 38.4 Results Labs 02/06/24 21:53 02/06/24 21:53 Labs: Laboratory Results - last 24 hr 02/06/24 02/06/24 02/06/24 21:53 21:55 22:00 MCV 105.5 H MCH 33.5 H MCHC 31.7 RDW 17.2 H Plt Count 324 D MPV 9.8 Immature Gran % (Auto) 0.7 H Neut % (Auto) 71.5 Lymph % (Auto) 21.5 [place] % (Auto) 4.9 Eos % (Auto) 1.1 Baso % (Auto) 0.3 Lymph # (Auto) 2.4 [place] # (Auto) 0.5 Eos # (Auto) 0.1 Baso # (Auto) 0.0 Abs Immat Gran (auto) 0.08 H Absolute Neuts (auto) 8.0 Absolute Nucleated RBC 0.000 Nucleated RBC % (auto) 0.0 PT 13.7 H INR 1.1 VBG pH 7.23 L VBG pCO2 69 VBG pO2 48 VBG HCO3 29 H VBG O2 Saturation 70.0 VBG Base Excess 0.6 Anion Gap 20 Estim Creat Clear Calc 10.4 Estimated GFR 6 Random Glucose 323 H Lactic Acid 4.5 H* Calcium 10.0 Magnesium 2.3 Total Bilirubin 0.6 Direct Bilirubin 0.2 AST 15 ALT 18 Alkaline Phosphatase 61 Troponin I High Sens 133.1 H* D B-Natriuretic Peptide 3870 H Total Protein 7.5 Albumin 4.2 COVID-19 ([facility]JANE) Negative COVID-19 Clin Com See Note Influenza Type A (SIMBA) Negative Influenza Type B (SIMBA) Negative Influenza A & B Note See Note Imaging Radiologist's Impressions: Impressions Chest X-Ray 02/06/24 22:18 IMPRESSION: Mild pulmonary venous congestion and interstitial opacities, most likely due to pulmonary edema. Patchy airspace opacities in the lung bases bilaterally raise the possibility of multifocal pneumonia or early alveolar edema.. Chest X-Ray 02/06/24 23:08 IMPRESSION: 1. Endotracheal tube catheter 6 cm above the mary. 2. Enteric catheter tip passes just below the diaphragm. The sidehole remains in the distal esophagus. Catheter could be advanced 10 cm. 3. Extensive bilateral patchy airspace opacities remain unchanged since prior study..
[2024-02-06] MEDS: vancomycin/NS 2,000 MG/500 ML PLAST..BAG 250 MG IV (23:55)
[2024-02-06 23:56] LABS: Reflex Lactate? Lactic Acid Added
[2024-02-07] VITALS (17 sets, daily range): BP systolic 87–153; BP diastolic 33–68; PULSE 69–117; RESP 16–19; TEMP 32.4–37.8; O2SAT 97–99
[2024-02-07] MEDS: Acetaminophen Supp 650 MG SUPP.RECT PR (00:01)
[2024-02-07 00:40] LABS: Venous Blood Gas Refer to POC result
[2024-02-07 00:41] LABS: VBG Base Excess 7.3 mmol/L; VBG HCO3 30 mmol/L (22-26); VBG pCO2 35 mmHg; VBG pH 7.53 (7.32-7.43); VBG pO2 172 mmHg
[2024-02-07 00:47] LABS: ~Lactic Acid-LAB USE ONLY 1.7 mmol/L (0.5-2.0)
[2024-02-07 00:50] LABS: Phosphorus 4.4 mg/dL (2.7-4.5)
[2024-02-07 01:00] LABS: Troponin-I High Sensitivity 327.8 ng/L (<3.5-35.0)
[2024-02-07] MEDS: Midazolam HCl/PF 2 MG/2 ML VIAL IVPUSH (01:16)
[2024-02-07] MEDS: Norepinephrine Bitartrate/D5W 8 MG/250 ML PLAST..BAG 11.06 MG IV (01:48)
[2024-02-07] MEDS: propofoL 1,000 MG/100 ML VIAL 35.4 MG IVCONT (02:02)
[2024-02-07] MEDS: Furosemide 200 MG in 0.9 % Sodium Chloride 80 ML IVCONT (02:17)
[2024-02-07] MEDS: Piperacillin Sodium/Tazobactam 4.5 GM in 0.9 % Sodium Chloride 100 ML IV (03:02)
--- NOTE | 2024-02-07 03:19 | PC.NURSE ---
T/w called [phone] to provide nurse to nurse. No answer. Will attempt again
--- NOTE | 2024-02-07 04:05 | PC.NURSE ---
late entry PT arrived via ems with complaints of increasing SOB for 3 hours. Ems reports that pt was placed on cpap en route but became unconscious?and therefore was removed and bagged. In ED 11 Rt called to bedside and pt placed on bipap Several attempts were made to line PT and draw labs, which were unsuccessful. Ultrasound guided IV placed by Vladimir WATKINS in right aC . labs drawn. 9 still complained of worsening SOB, tripoding and rr at 42. Decision was made to intubate- pt agreeable. 2224- 20mg of etomidate and 50mg of rocuronium administered 2225- PT intubated, 8.0 ET, 23 @lip 2228 propofol?hung and infusing starting dose 30mcg, increased to 50 mcg due to PT thrashing . Soft restraints?applied.?2239 Rt called to bedside, as pt sating at 80%, Repositioned?pt and RT suctions- sat improvised?to 100% 2243- NG tube placed by provider 2250 x ray in room to confirm placement. ET moved to 28@ lip 2252 IV line placed in right wrist? 2302 Medications ad ministered?as per NOV. Provider ordered ceftriaxone?empirically- white count elevated lactic?4.5 - did not call sepsis protocol.? 0017 Kramer placed? 0042 Report Given to [facility] 0112 PT thrashing, medicated as per NOV? [address] 0210- called to pharmacy regarding compatibility of medications.? 0211 plan of care changed- pt to be transfer due to ICU no longer being available 0319 several of attempts made to reach Nurse at [phone]. no answer 0335 t/w contacted PT to inform her of hospital name and number/ plan of care
== END 2024-02-07 05:20 | disposition short-term general hospital (02) ==
LOC: HO.ED 22:20 → HO.ICU 02-07 00:38 → HO.ED 02-07 03:07
PROVIDERS: Registered Nurse Community Health; Emergency Provider Emergency Medicine
DX: J81.1 Chronic pulmonary edema (principal); J18.9 Pneumonia, unspecified organism; J96.91 Respiratory failure, unspecified with hypoxia; I12.9 Hypertensive chronic kidney disease with stage 1 through stage 4 chronic kidney disease, or unspecified chronic kidney disease; E11.22 Type 2 diabetes mellitus with diabetic chronic kidney disease; N18.9 Chronic kidney disease, unspecified; I25.10 Atherosclerotic heart disease of native coronary artery without angina pectoris; M10.9 Gout, unspecified; I25.2 Old myocardial infarction; R55 Syncope and collapse; R53.83 Other fatigue; Z79.899 Other long term (current) drug therapy; Z99.2 Dependence on renal dialysis
CPT/HCPCS: 36415; 71045; 71250; 80048; 80076; 82803; 83605; 83735; 83880; 84100; 84484; 85025; 85610; 87040; 87502; 87635; 93005; 94002; 94003; 96365; 96366; 96375; 99284; 99285; J0696; J1940; J2250; J2543; J2704; J3370

== ENCOUNTER → 2024-02-06 21:48 | Outpatient (BNV) | payer MEDICARE, SELFPAY | PROVIDERS: Emergency Provider Emergency Medicine; Visit Provider Internal Medicine | DX: R06.02 Shortness of breath (principal) | CPT/HCPCS: 93010 ==